=== PATIENT | female | born 1995 | race Caucasian/White ===

== ENCOUNTER 2016-07-29 09:38 | Emergency (ER) | payer MEDICAID, OTHER ==
[2016-07-29 10:11] LABS: #Basophils 0.1 thou/uL (0.0-0.2); #Eosinphils 0.3 thou/uL (0.0-0.7); #Lymphocytes 2.5 thou/uL (1.20-3.40); #Monocytes 0.5 thou/uL (0.11-0.59); #Neutrophils 4.3 thou/uL (1.40-6.50); %Eosinophils 3.7 % (0.0-10.0); %Monocytes 6.8 % (0.0-10.0); Hematocrit 41.6 % (36.0-47.0); Mean Platelet Volume 6.9 fL (7.4-10.4); Red Blood Cell (RBC) Count 4.65 mill/uL (4.20-5.40); White Blood Cell (WBC) Count 7.7 thou/uL (4.8-10.8)
[2016-07-29 10:18] LABS: Base Excess -0.3 mEq/L (-2 - +2)
[2016-07-29 10:26] LABS: ALT (SGPT) 14 U/L (0-55); AST (SGOT) 12 U/L (5-34); Alkaline Phosphatase 69 U/L (40-150); Anion Gap 14 mmol/L (10-20); BUN (Urea Nitrogen) 15 mg/dL (7.0-18.7); Bilirubin, Total 0.2 mg/dL (0.2-1.2); Calc. Creatinine Clearance 0 mL/min (70-130); Calcium 9.2 mg/dL (7.8-10.44); Carbon Dioxide 21 mmol/L (22-29); Chloride 103 mmol/L (98-107); Estimated GFR-MDRD 81; Globulin 3.5 g/dL (2.4-3.5); Protein, Total 7.7 g/dL (6.0-8.3)
--- NOTE | 2016-07-29 10:42 | ERRECORD ---
[facility] EMERGENCY RECORD HPI DIABETES (09:50 [facility]) CHIEF COMPLAINT: Patient presents for evaluation of hyperglycemia, Pre-hospital or triage blood sugar greater than 400. HISTORIAN: History provided by patient, 21F with a history of IDDM presents with complaints of elevated blood sugar. States that last night in the middle of the night it was low, so she ate lots of food, and this morning it was 411. She took a bolus of 10 units of insulin by pump and came to the ED. Reports feeling sluggish. LOCATION: Symptoms are generalized. EXACERBATED BY: Patient's condition not exacerbated by poor oral intake. RELIEVED BY: Patient's condition relieved by insulin. ROS (09:52 [facility]) CONSTITUTIONAL: Negative constitutional review of systems, Historian denies chills, denies fever, reports malaise. EYES: Negative eye review of systems, Historian denies eye pain, denies vision changes. ENT: Negative ears, nose, throat review of systems, Historian denies rhinorrhea, denies sore throat, denies voice changes. CARDIOVASCULAR: Negative cardiovascular review of systems, Historian denies chest pain, denies palpitations. RESPIRATORY: Negative respiratory review of systems, Historian denies cough, denies shortness of breath. GI: Negative gastrointestinal review of systems, Historian denies abdominal pain, denies constipation, denies diarrhea, denies nausea, denies vomiting. GENITOURINARY FEMALE: Negative genitourinary review of systems, Historian denies dysuria, denies frequency. MUSCULOSKELETAL: Negative musculoskeletal review of systems, Historian denies back pain, denies fall, denies injury. SKIN: Negative skin review of systems, Historian denies rash, denies skin changes. NEUROLOGIC: Negative neurologic review of systems, Historian denies headache, denies mental status changes, denies paralysis, denies paresthesias, denies sensory changes. ENDOCRINE: hyperglycemia. HEMO/LYMPHATIC: Normal hematologic/lymphatic system review, Historian denies abnormal blood clotting. ALLERGIC/IMMUNOLOGIC: Normal allergy/immunologic system review, Historian denies frequent infections. PAST MEDICAL HISTORY (09:45 [facility]) MEDICAL HISTORY: Notes: pt has an insulin pump Rt flank, Past medical history includes history of diabetes, Type I, on insulin, Notes: BOARDERLINE PERSONALITY DISORDER, Past medical history includes history of diabetes, Type I. FEMALE SURGICAL HISTORY: Patient's surgical history is not relevant to the management of the case, TUBES IN EARS. PSYCHIATRIC HISTORY: Psychiatric history includes, &a-1R&a+25V*p+0X*p1305L*c202B*c15G*c2P*p-0X&a-25V&a+1R Name: Glenna Silva : 1995 F21 MedRec: [id number] AcctNum: [id number] Prepared: Sat Jul 29, 2016 10:43 by Interface Page 1 of 4 pMD [facility] EMERGENCY RECORD anxiety, depression. SOCIAL HISTORY: Patient drinks socially, once a month, Patient denies drug use, Patient has no smoking history. KNOWN ALLERGIES Bactrim: Source: Parent, - Entered brand: Bactrim Tab -- Entered brand: Bactrim Tab Ceclor: Reaction: Anaphylaxis, Severity: Severe, Source: Patient, - "stop breathing" CeleXA Phenergan: Source: Patient, - Entered brand: Phenergan Tab -- Entered brand: Phenergan Tab -- Entered brand: Phenergan Tab -- Entered brand: Phenergan Tab -- Entered brand: Phenergan Tab -- Entered brand: Phenergan Tab -- sezuires Reglan: Source: Patient, - Entered brand: Reglan Tab -- Entered brand: Reglan Tab -- Entered brand: Reglan Tab -- Entered brand: Reglan Tab -- Entered brand: Reglan Tab -- Entered brand: Reglan Tab -- sezuires CURRENT MEDICATIONS (10:37 [facility]) Unable to obtain VITAL SIGNS VITAL SIGNS: BP: 131/83, Pulse: 106, Resp: 18, Temp: 98.1 (Oral), Pain: 5, O2 sat: 98 on Room Air, Time: 07/29/2016 09:42. (09:42 [facility]) BP: 128/77, Pulse: 94, Resp: 18, O2 sat: 99 on Room Air, Time: 07/29/2016 10:37. (10:37 [facility]) PHYSICAL EXAM (09:52 [facility]) CONSTITUTIONAL: Vital signs reviewed, Patient afebrile, Pulse normal, Blood pressure normal, Respiratory rate normal, Patient appears non toxic, Patient appears pain free, Patient alert and oriented to person, place and time. HEAD: Head exam normal, Head exam included findings of head atraumatic, normocephalic. EYES: Eye exam normal, Eye exam included findings of eyelids normal to inspection, Pupils equally round and reactive to light, Extraocular muscles intact, no nystagmus. ENT: ENT exam normal, Ear exam normal, external ear normal, tympanic membranes normal, no bleeding, Pharynx exam normal, Uvula exam normal, Tonsil exam normal, Mouth exam normal, mucous membranes moist, teeth normal. NECK: Neck exam normal, Neck exam included findings of normal range of motion, Trachea midline, no meningeal signs, no cervical adenopathy, no tenderness. RESPIRATORY CHEST: Respiratory and chest exam normal, Respiratory exam included findings of no respiratory distress, Breath sounds clear. CARDIOVASCULAR: Cardiovascular assessment normal, Cardiovascular exam included findings of heart rate regular rate and rhythm, Heart &a-1R&a+25V*p+0X*f8688R*c202B*c15G*c2P*p-0X&a-25V&a+1R Name: Glenna Silva : 1995 F21 MedRec: [id number] AcctNum: [id number] Prepared: Sat Jul 29, 2016 10:43 by Interface Page 2 of 4 pMD [facility] EMERGENCY RECORD sounds normal. ABDOMEN FEMALE: Abdominal exam included findings of abdomen nontender, Bowel sounds normal, no distension, no mass, no pulsatile masses, no peritoneal signs, no rigidity, no guarding, no rebound, Rovsing's sign absent. BACK: Back exam normal, Back exam included findings of normal inspection, range of motion normal, no tenderness. UPPER EXTREMITY: Upper extremity exam normal, Upper extremity exam included findings of inspection normal, Range of motion normal, Motor strength normal, Sensation intact, Radial pulse normal. LOWER EXTREMITY: Lower extremity exam normal, Lower extremity exam included findings of inspection normal, Range of motion normal, Motor strength normal, Sensation intact, Posterior tibial pulse normal, Pedal pulse normal. NEURO: Neuro exam normal, Neuro exam findings include patient oriented to person, place and time, Speech normal, Gait normal, Cranial nerves intact, no focal motor deficits, no focal sensory deficits. SKIN: Skin exam normal, Skin exam included findings of skin warm, dry, and normal in color, no rash. PSYCHIATRIC: Psychiatric exam normal, Normal affect. MEDICATION ADMINISTRATION SUMMARY Drug Name: *sodium chloride 0.9 % intravenous, Dose Ordered: 500 mL, Route: IV Fluid Infusion, Status: Given, Time: 09:59 07/29/2016, *Additional information available in notes, Detailed record available in Medication Service section. DOCTOR NOTES (10:33 [facility]) TEXT: Patient presented with hyperglycemia and concern for DKA, which was not supported by her lab work. While she was close, she was not acidotic with a regular anion gap. She has a good understanding of her condition and management of it, and I feel comfortable discharging her home with the provision that she returns if she feels worse or cannot control her glucose levels at home. PATIENT STATUS: Patient has improved since arrival to emergency department. PATIENT PLAN: The patient will be discharged. DATA REVIEWED: Lab data reviewed. PROBLEM LIST No recorded problems DIAGNOSIS (10:33 [facility]) FINAL: PRIMARY: TYPE 1 DM W/HYPERGLYCEMIA. PRESCRIPTION No recorded prescriptions &a-1R&a+25V*p+0X*[id number]*c202B*c15G*c2P*p-0X&a-25V&a+1R Name: Glenna Silva : 1995 F21 MedRec: [id number] AcctNum: [id number] Prepared: Sat Jul 29, 2016 10:43 by Interface Page 3 of 4 pMD [facility] EMERGENCY RECORD DISPOSITION PATIENT: Disposition Type: Discharge, Disposition: *Discharge Home. (10:33 [facility]) Patient left the department. (10:40 [facility]) Larsen: THERESE=MD Lucinda, Perico [facility]=DARRION Wynne, Twyla &a-1R&a+25V*p+0X*[id number]*c202B*c15G*c2P*p-0X&a-25V&a+1R Name: Glenna Silva Danny : 1995 F21 MedRec: [id number] AcctNum: [id number] Prepared: Sat Jul 29, 2016 10:43 by Interface Page 4 of 4 pMD [facility]TDD
--- NOTE | 2016-07-29 10:51 | PICIS ---
[facility] EMERGENCY RECORD TRIAGE (09:41 KMOR) TRIAGE NOTES: High blood sugar, took 10 units insulin at 0700, sugar 411. Vomited x2 this am. (09:41 KMOR) PATIENT: NAME: Glenna Silva, AGE: 21, GENDER: female, : Sun1995, TIME OF GREET: Sat Jul 29, 2016 09:39, PREFERRED LANGUAGE: Welsh, ETHNICITY: Not or , FALL RISK: NO, ECODE BILLING MAP: [facility], SSN: [id number], KG WEIGHT: 70.76, PHONE: , , , PERSON ID: [id number], PCP: MD Garcia Nanette. (09:41 KMOR) Zip Code: [address]. (10:02) COMPLAINT: High blood sugar. (09:41 KMOR) ADMISSION: URGENCY: 3 Urgent, ADMISSION SOURCE: Home, TRANSPORT: CAR, BED: ER -02. (09:41 KMOR) ASSESSMENT: Assessment: A&OX4. RR EVEN AND UNLABORED., Symptoms began 2 hours ago. (09:45 KMOR) SIRS SCORING: Heart Rate 55-109 (0), Temp range 96.8-101.1 (0), respiratory rate 12-24 (0), Mental Status altered: no (0), Infection or Suspected Infection: No. (09:45 KMOR) TRIAGE SCREENING: Patient denies suicidal ideation, Patient denies presence of domestic violence. (09:45 KMOR) LMP: Last menstrual period: 06/26/2016. (09:45 KMOR) PROVIDERS: TRIAGE NURSE: Twyla Wynne RN. (09:41 KMOR) VITAL SIGNS: BP 131/83, Pulse 106, Resp 18, Temp 98.1, (Oral), Pain 5, O2 Sat 98, on Room Air, Time 07/29/2016 09:42. (09:42 KMOR) PREVIOUS VISIT ALLERGIES: Bactrim, Ceclor, Phenergan, promethazine HCl, Reglan, sulfamethoxazole, trimethoprim. (09:41 KMOR) Bactrim, Ceclor, Phenergan, promethazine HCl, Reglan, sulfamethoxazole, trimethoprim. (09:45 KMOR) KNOWN ALLERGIES Bactrim: Source: Parent, - Entered brand: Bactrim Tab -- Entered brand: Bactrim Tab Ceclor: Reaction: Anaphylaxis, Severity: Severe, Source: Patient, - "stop breathing" CeleXA Phenergan: Source: Patient, - Entered brand: Phenergan Tab -- Entered brand: Phenergan Tab -- Entered brand: Phenergan Tab -- Entered brand: Phenergan Tab -- Entered brand: Phenergan Tab -- Entered brand: Phenergan Tab -- sezuires Reglan: Source: Patient, - Entered brand: Reglan Tab -- Entered brand: Reglan Tab -- Entered brand: Reglan Tab -- Entered brand: Reglan Tab -- Entered brand: Reglan Tab -- Entered brand: Reglan Tab -- sezuires CURRENT MEDICATIONS (10:37 KMOR) Unable to obtain VITAL SIGNS &a-1R&a+25V*p+0X*k3673Q*c202B*c15G*c2P*p-0X&a-25V&a+1R Name: lGenna Silva : 1995 F21 MedRec: [id number] AcctNum: [id number] Prepared: Sat Jul 29, 2016 10:49 by Interface Page 1 of 7 pMD [facility] EMERGENCY RECORD VITAL SIGNS: BP: 131/83, Pulse: 106, Resp: 18, Temp: 98.1 (Oral), Pain: 5, O2 sat: 98 on Room Air, Time: 07/29/2016 09:42. (09:42 KMOR) BP: 128/77, Pulse: 94, Resp: 18, O2 sat: 99 on Room Air, Time: 07/29/2016 10:37. (10:37 KMOR) NURSING ASSESSMENT: ABDOMEN (09:53 KMOR) CONSTITUTIONAL: Patient arrives ambulatory, Gait steady, History obtained from patient, Patient appears comfortable, Patient cooperative, Patient alert, Oriented to person, place and time, Skin warm, Skin dry, Skin normal in color, Mucous membranes pink, Mucous membranes moist, Patient is well-groomed, Patient complains of High blood sugar, Patient reports she felt like her sugar was low in the middle of the night so she ate a lot, reports woke vomiting x 2 and "high" blood sugar, reports took 10units of insulin this am, reports still have stomach cramps. PAIN: cramping pain, diffusely, on a scale 0-10 patient rates pain as 5. ABDOMEN: Abdomen assessment findings include abdomen symmetrical, Abdomen soft, non-tender, Bowel sound normal, Associated with nausea, Associated with vomiting, history of vomiting, Number of times: 2, no associated diarrhea, no associated constipation, no associated appetite change. LMP: First day last menstrual period, Last period started on 06/26/2016. GENITOURINARY FEMALE: no associated urinary complaints. NOTES: Patient tolerated procedure well. NURSING PROCEDURE: BEDSIDE TESTING (09:46 LGIB) GLUCOSE: Capillary blood sample, Result (mg/dl) 294. NURSING PROCEDURE: DISCHARGE NOTE (10:40 KMOR) DISCHARGE: Patient discharged to home, ambulating without assistance, family driving, accompanied by //partner, Summary of Care printed/ provided, Transition record given to patient, Discharge instructions given to patient, Simple or moderate discharge teaching performed, by DARRION Wakefield, Discharge instructions and follow up reviewed with patient. Pt ambulatory to discharge desk., Above person(s) verbalized understanding of discharge instructions and follow-up care. BELONGINGS: Belongings remain with patient, Valuables remain with patient. NURSING PROCEDURE: IV PATIENT IDENITIFIER: Patient actively involved in identification process, Patient's identity verified by patient stating name, Patient's identity verified by patient stating date. (10:35 KMOR) IV SITE 1: IV therapy indicated for hydration, IV established, to the left antecubital, using a 20 gauge catheter, in one attempt, Saline lock established, Flushed with normal saline (mls): 10, Labs &a-1R&a+25V*p+0X*f9154U*c202B*c15G*c2P*p-0X&a-25V&a+1R Name: Glenna Silva Danny : 1995 F21 MedRec: [id number] AcctNum: [id number] Prepared: Sat Jul 29, 2016 10:49 by Interface Page 2 of 7 pMD [facility] EMERGENCY RECORD drawn at time of placement, labeled in the presence of the patient and sent to lab. (09:58 LGIB) FOLLOW-UP SITE 1: After procedure, 2x3 ensure dressing applied, After procedure, no drainage at IV site, After procedure, no swelling at IV site, After procedure, no redness at IV site, IV discontinued, due to patient being discharged, catheter intact. (10:35 KMOR) NOTES: Patient tolerated procedure well. (10:35 KMOR) ORDER DETAILS Order Name: CBC with Differential, Status: Active, Time: 09:48 07/29/2016, User: THERESE, - Ordered for: MD Jane Jason, - Entered by: MD Jane Jason - Sat Jul 29, 2016 09:48, - Quantity: 1, Order Name: Comprehensive Metabolic Panel, Status: Active, Time: 09:48 07/29/2016, User: THERESE, - Ordered for: MD Jane Jason, - Entered by: MD Jane Jason - Sat Jul 29, 2016 09:48, - Quantity: 1, Order Name: SALINE LOCK, Status: Done, Time: 10:02 07/29/2016, User: LOGAN, - Ordered for: MD Jane Jason, - Entered by: MD Jane Jason - [facility] Jul 29, 2016 09:48, - Quantity: 1, Order Name: VBG (For BUR,MAD, and MONSERRAT), Status: Active, Time: 09:48 07/29/2016, User: THERESE, - Ordered for: MD Jane Jason, - Entered by: MD aJne Jason - Sat Jul 29, 2016 09:48, - Quantity: 1. MEDICATION ADMINISTRATION SUMMARY Drug Name: *sodium chloride 0.9 % intravenous, Dose Ordered: 500 mL, Route: IV Fluid Infusion, Status: Given, Time: 09:59 07/29/2016, *Additional information available in notes, Detailed record available in Medication Service section. MEDICATION SERVICE sodium chloride 0.9 % intravenous: Order: sodium chloride 0.9 % intravenous (0.9 % sodium chloride) - Dose: 500 mL : IV Fluid Infusion Notes: (Bolus) Ordered by: Perico Jane MD Entered by: Perico Jane MD Sat Jul 29, 2016 09:49 , Acknowledged by: Carli Shah RN Sat Jul 29, 2016 09:51 Documented as given by: Carli Shah RN Sat Jul 29, 2016 09:59 Patient, Medication, Dose, Route and Time verified prior to administration. IV SITE #1 IV fluids established for hydration, IV SITE #1 into left &a-1R&a+25V*p+0X*i8196M*c202B*c15G*c2P*p-0X&a-25V&a+1R Name: Glenna Silva : 1995 F21 MedRec: [id number] AcctNum: [id number] Prepared: Sat Jul 29, 2016 10:49 by Interface Page 3 of 7 pMD [facility] EMERGENCY RECORD antecubital, IV SITE #1 1st bag hung, amount 500ml hung, IV SITE #1 bolus of 500 ml established, IV SITE #1 Rate of infusion (non-bolus) Infusing at 1000 ml/hr, via primary tubing, IV SITE #1 on IV pump, Catheter placement confirmed via flush prior to administration, IV site without signs or symptoms of infiltration during medication administration, No swelling during administration, No drainage during administration, IV flushed after administration, Correct patient, time, route, dose and medication confirmed prior to administration, Patient advised of actions and side-effects prior to administration, Allergies confirmed and medications reviewed prior to administration, Patient in position of comfort, Side rails up, Cart in lowest position, Family at bedside. : Follow Up : Response assessment performed, No signs or symptoms of allergic reaction noted, _IV SITE #1:_, IV fluid infusion discontinued, on Sat Jul 29, 2016 10:33, 35 minutes, ., Total amount infused: 500ml, IV Discontinued with catheter intact. (10:33 KMOR) HPI DIABETES (09:50 [facility]) CHIEF COMPLAINT: Patient presents for evaluation of hyperglycemia, Pre-hospital or triage blood sugar greater than 400. HISTORIAN: History provided by patient, 21F with a history of IDDM presents with complaints of elevated blood sugar. States that last night in the middle of the night it was low, so she ate lots of food, and this morning it was 411. She took a bolus of 10 units of insulin by pump and came to the ED. Reports feeling sluggish. LOCATION: Symptoms are generalized. EXACERBATED BY: Patient's condition not exacerbated by poor oral intake. RELIEVED BY: Patient's condition relieved by insulin. ROS (09:52 [facility]) CONSTITUTIONAL: Negative constitutional review of systems, Historian denies chills, denies fever, reports malaise. EYES: Negative eye review of systems, Historian denies eye pain, denies vision changes. ENT: Negative ears, nose, throat review of systems, Historian denies rhinorrhea, denies sore throat, denies voice changes. CARDIOVASCULAR: Negative cardiovascular review of systems, Historian denies chest pain, denies palpitations. RESPIRATORY: Negative respiratory review of systems, Historian denies cough, denies shortness of breath. GI: Negative gastrointestinal review of systems, Historian denies abdominal pain, denies constipation, denies diarrhea, denies nausea, denies vomiting. GENITOURINARY FEMALE: Negative genitourinary review of systems, Historian denies dysuria, denies frequency. MUSCULOSKELETAL: Negative musculoskeletal review of systems, Historian denies back pain, denies fall, denies injury. SKIN: Negative skin review of systems, Historian denies rash, &a-1R&a+25V*p+0X*x2042X*c202B*c15G*c2P*p-0X&a-25V&a+1R Name: Glenna Silva : 1995 F21 MedRec: [id number] AcctNum: [id number] Prepared: Sat Jul 29, 2016 10:49 by Interface Page 4 of 7 pMD [facility] EMERGENCY RECORD denies skin changes. NEUROLOGIC: Negative neurologic review of systems, Historian denies headache, denies mental status changes, denies paralysis, denies paresthesias, denies sensory changes. ENDOCRINE: hyperglycemia. HEMO/LYMPHATIC: Normal hematologic/lymphatic system review, Historian denies abnormal blood clotting. ALLERGIC/IMMUNOLOGIC: Normal allergy/immunologic system review, Historian denies frequent infections. PAST MEDICAL HISTORY (09:45 KMOR) MEDICAL HISTORY: Notes: pt has an insulin pump Rt flank, Past medical history includes history of diabetes, Type I, on insulin, Notes: BOARDERLINE PERSONALITY DISORDER, Past medical history includes history of diabetes, Type I. FEMALE SURGICAL HISTORY: Patient's surgical history is not relevant to the management of the case, TUBES IN EARS. PSYCHIATRIC HISTORY: Psychiatric history includes, anxiety, depression. SOCIAL HISTORY: Patient drinks socially, once a month, Patient denies drug use, Patient has no smoking history. PHYSICAL EXAM (09:52 [facility]) CONSTITUTIONAL: Vital signs reviewed, Patient afebrile, Pulse normal, Blood pressure normal, Respiratory rate normal, Patient appears non toxic, Patient appears pain free, Patient alert and oriented to person, place and time. HEAD: Head exam normal, Head exam included findings of head atraumatic, normocephalic. EYES: Eye exam normal, Eye exam included findings of eyelids normal to inspection, Pupils equally round and reactive to light, Extraocular muscles intact, no nystagmus. ENT: ENT exam normal, Ear exam normal, external ear normal, tympanic membranes normal, no bleeding, Pharynx exam normal, Uvula exam normal, Tonsil exam normal, Mouth exam normal, mucous membranes moist, teeth normal. NECK: Neck exam normal, Neck exam included findings of normal range of motion, Trachea midline, no meningeal signs, no cervical adenopathy, no tenderness. RESPIRATORY CHEST: Respiratory and chest exam normal, Respiratory exam included findings of no respiratory distress, Breath sounds clear. CARDIOVASCULAR: Cardiovascular assessment normal, Cardiovascular exam included findings of heart rate regular rate and rhythm, Heart sounds normal. ABDOMEN FEMALE: Abdominal exam included findings of abdomen nontender, Bowel sounds normal, no distension, no mass, no pulsatile masses, no peritoneal signs, no rigidity, no guarding, no rebound, Rovsing's sign absent. BACK: Back exam normal, Back exam included findings of normal &a-1R&a+25V*p+0X*r7316O*c202B*c15G*c2P*p-0X&a-25V&a+1R Name: Glenna Silva : 1995 F21 MedRec: [id number] AcctNum: [id number] Prepared: Sat Jul 29, 2016 10:49 by Interface Page 5 of 7 pMD [facility] EMERGENCY RECORD inspection, range of motion normal, no tenderness. UPPER EXTREMITY: Upper extremity exam normal, Upper extremity exam included findings of inspection normal, Range of motion normal, Motor strength normal, Sensation intact, Radial pulse normal. LOWER EXTREMITY: Lower extremity exam normal, Lower extremity exam included findings of inspection normal, Range of motion normal, Motor strength normal, Sensation intact, Posterior tibial pulse normal, Pedal pulse normal. NEURO: Neuro exam normal, Neuro exam findings include patient oriented to person, place and time, Speech normal, Gait normal, Cranial nerves intact, no focal motor deficits, no focal sensory deficits. SKIN: Skin exam normal, Skin exam included findings of skin warm, dry, and normal in color, no rash. PSYCHIATRIC: Psychiatric exam normal, Normal affect. EVENTS TRANSFER: Triage to Emergency Emergency Room -02. (Sat Jul 29, 2016 09:41 KMOR) Removed from Emergency Emergency Room -02. (10:40 KMOR) DOCTOR NOTES (10:33 JJA) TEXT: Patient presented with hyperglycemia and concern for DKA, which was not supported by her lab work. While she was close, she was not acidotic with a regular anion gap. She has a good understanding of her condition and management of it, and I feel comfortable discharging her home with the provision that she returns if she feels worse or cannot control her glucose levels at home. PATIENT STATUS: Patient has improved since arrival to emergency department. PATIENT PLAN: The patient will be discharged. DATA REVIEWED: Lab data reviewed. PROBLEM LIST No recorded problems DIAGNOSIS (10:33 JJA) FINAL: PRIMARY: TYPE 1 DM W/HYPERGLYCEMIA. DISPOSITION PATIENT: Disposition Type: Discharge, Disposition: *Discharge Home. (10:33 JJA) Patient left the department. (10:40 KMOR) [facility] DISCHARGE: DIABETIC HYPERGLYCEMIA. FOLLOWUP: MD Jose, Desirae, [facility], [address] [place] [address], [address], [place] [id number], [place], . SPECIAL: Monitor your blood sugar closely. Return if you begin feeling worse. &a-1R&a+25V*p+0X*t2478T*c202B*c15G*c2P*p-0X&a-25V&a+1R Name: Glenna Silva Danny : 1995 F21 MedRec: [id number] AcctNum: [id number] Prepared: Sat Jul 29, 2016 10:49 by Interface Page 6 of 7 pMD [facility] EMERGENCY RECORD PRESCRIPTION No recorded prescriptions IMAGING (10:44 KMOR) *DISCHARGE INSTRUCTIONS RECEIPT: Image captured from scanner. *SUPPLY CHARGE SHEET: Image captured from scanner. ADMIN DIGITAL SIGNATURE: MD Jane Jason. (10:35 THERESE) DARRION Wynne Krista. (10:45 LOGAN) Larsen: THERESE=MD Jane Jason [place]=DARRION Wynne Krista LGIB=DARRION Shah, Carli &a-1R&a+25V*p+0X*[id number]*c202B*c15G*c2P*p-0X&a-25V&a+1R Name: Shira Glenna Danny : 1995 F21 MedRec: [id number] AcctNum: [id number] Prepared: Homer Jul 29, 2016 10:49 by Interface Page 7 of 7 pMD MTDD
== END 2016-07-29 10:40 | disposition home or self-care (01) ==
LOC: BURERS 09:38
DX: E10.65 Type 1 diabetes mellitus with hyperglycemia (principal); F32.9 Major depressive disorder, single episode, unspecified; F41.9 Anxiety disorder, unspecified
CPT/HCPCS: 36416; 80053; 82805; 85025; 96360

== ENCOUNTER 2016-08-15 19:50 | Emergency (ER) | payer MEDICAID ==
[2016-08-15 20:25] LABS: #Basophils 0.1 thou/uL (0.0-0.2); #Eosinphils 0.3 thou/uL (0.0-0.7); #Lymphocytes 2.9 thou/uL (1.20-3.40); #Monocytes 0.5 thou/uL (0.11-0.59); #Neutrophils 4.7 thou/uL (1.40-6.50); %Basophils 1.2 % (0.0-1.0); %Monocytes 6.2 % (0.0-10.0); Hematocrit 40.7 % (36.0-47.0); Mean Platelet Volume 7.4 fL (7.4-10.4); Red Blood Cell (RBC) Count 4.47 mill/uL (4.20-5.40); White Blood Cell (WBC) Count 8.5 thou/uL (4.8-10.8)
[2016-08-15 20:36] LABS: ALT (SGPT) 8 U/L (0-55); AST (SGOT) 10 U/L (5-34); Alkaline Phosphatase 71 U/L (40-150); Anion Gap 18 mmol/L (10-20); BUN (Urea Nitrogen) 19 mg/dL (7.0-18.7); Bilirubin, Total 0.3 mg/dL (0.2-1.2); Calc. Creatinine Clearance 0 mL/min (70-130); Calcium 9.2 mg/dL (7.8-10.44); Carbon Dioxide 18 mmol/L (22-29); Chloride 96 mmol/L (98-107); Estimated GFR-MDRD 66; Globulin 3.2 g/dL (2.4-3.5); Magnesium 1.9 mg/dL (1.6-2.6); Protein, Total 7.3 g/dL (6.0-8.3)
[2016-08-15 20:48] LABS: Bilirubin Negative (Negative); Blood, Urine Negative (Negative); Glucose, Urine (Dipstick) >=1000 mg/dL (Negative); Ketone, Urine 15 mg/dL (Negative); Nitrite Negative (Negative); Protein, Urine (Dipstick) Negative (Neg-Trace); Urobilinogen 0.2 mg/dL (0.2-1.0)
[2016-08-15 20:57] LABS: Bacteria/HPF 2+ HPF (None Seen); RBC/HPF 0-3 HPF (0-3); Squamous Epithelial 0-3 HPF (0-3)
[2016-08-15] MEDS ORDERED: Meclizine HCl 25 MG TAB ONE (20:57)
[2016-08-15] MEDS ORDERED: Ciprofloxacin Lactate/D5W 400 mg/200 ml Premix ONE (21:08)
[2016-08-15] MEDS ORDERED: Insulin Regular 300 UNITS/3 ML VIAL ONE (21:08)
--- NOTE | 2016-08-15 23:21 | ERRECORD ---
[facility] EMERGENCY RECORD HPI DIABETES (22:18 JPIP) CHIEF COMPLAINT: Denies hypoglycemia, Patient presents for evaluation of hyperglycemia, Pre-hospital or triage blood sugar greater than 400, Patient presents for evaluation of home monitor read "HI". HISTORIAN: History provided by patient. LOCATION: No localizing symptoms. SEVERITY: Current severity of pain rated as 2/10. TIME COURSE: Sudden onset of symptoms, Date and time of onset was 2-3 days, There has been no change in the patient's symptoms over time, are constant. ASSOCIATED WITH: No associated dizziness, No associated fever, No associated illness, No associated injury, No associated loss of consciousness, No associated upper respiratory infection, No associated vomiting. EXACERBATED BY: Patient's condition exacerbated by nothing. RELIEVED BY: Patient's condition relieved by nothing. ROS (22:19 JPIP) CONSTITUTIONAL: Historian denies chills, denies fever. ENT: Historian denies dysphagia, denies otalgia, denies sinus pain, denies sore throat. CARDIOVASCULAR: Historian denies chest pain, denies dyspnea on exertion. RESPIRATORY: Historian denies cough, denies shortness of breath. GI: Historian reports nausea. GENITOURINARY FEMALE: Historian denies dysuria, denies frequency, denies hematuria, denies , denies urgency. MUSCULOSKELETAL: Historian reports myalgias. SKIN: Historian denies rash, denies skin changes, denies skin lesions. NEUROLOGIC: Historian denies confusion, denies dizziness, denies headache. ENDOCRINE: Historian reports polyuria. NOTES: All systems reviewed, negative except as described above. PAST MEDICAL HISTORY MEDICAL HISTORY: Past medical history includes history of diabetes, Type I, on insulin, Notes: BOARDERLINE PERSONALITY DISORDER,. (19:58 SDIS) FEMALE SURGICAL HISTORY: TUBES IN EARS. (19:58 SDIS) PSYCHIATRIC HISTORY: Psychiatric history includes, anxiety, depression. (19:58 SDIS) SOCIAL HISTORY: Patient drinks socially, once a month, Patient denies drug use, Patient has no smoking history. (19:58 SDIS) NOTES: Nursing records reviewed, Medication list reviewed. (22:21 JPIP) KNOWN ALLERGIES Bactrim: Source: Parent, - Entered brand: Bactrim Tab -- Entered &a-1R&a+25V*p+0X*v9524C*c202B*c15G*c2P*p-0X&a-25V&a+1R Name: Glenna Silva : 1995 F21 MedRec: [id number] AcctNum: [id number] Prepared: SunAug 15, 2016 23:16 by Interface Page 1 of 4 pMD [facility] EMERGENCY RECORD brand: Bactrim Tab Ceclor: Reaction: Anaphylaxis, Severity: Severe, Source: Patient, - "stop breathing" CeleXA Phenergan: Source: Patient, - Entered brand: Phenergan Tab -- Entered brand: Phenergan Tab -- Entered brand: Phenergan Tab -- Entered brand: Phenergan Tab -- Entered brand: Phenergan Tab -- Entered brand: Phenergan Tab -- sezuires Reglan: Source: Patient, - Entered brand: Reglan Tab -- Entered brand: Reglan Tab -- Entered brand: Reglan Tab -- Entered brand: Reglan Tab -- Entered brand: Reglan Tab -- Entered brand: Reglan Tab -- sezuires Zofran (PF) CURRENT MEDICATIONS NovoLIN 70/30: VIAL (ML) : Strength - 100 unit/mL (70-30) : SUBCUTANEOUS Patient Dose: 22 units Subcutaneous 2 times a day. (19:55 SDIS) NovoLOG: VIAL (ML) : Strength - 100 unit/mL : SUBCUTANEOUS Patient Dose: * units Subcutaneous 3 times a day.SLIDING SCALE. (19:55 SDIS) OLANZapine: TABLET : Strength - 5 mg : ORAL Patient Dose: 5 mg Oral once a day. (19:56 SDIS) PROzac: CAPSULE : Strength - 40 mg : ORAL Patient Dose: 40 mg Oral once a day. (19:56 SDIS) VITAL SIGNS VITAL SIGNS: BP: 119/86, Pulse: 91, Resp: 18 (Non-Labored), Temp: 98.2 (Oral), Pain: 2, O2 sat: 98 on Room Air, Time: 08/15/2016 19:51. (19:51 SDIS) BP: 121/73, Pulse: 81, Resp: 20, O2 sat: 99 on Room Air, Time: 08/15/2016 22:15. (22:15 SDIS) (22:24 SDIS) BP: 127/75, Pulse: 83, Resp: 18, O2 sat: 95 on Room Air, Time: 08/15/2016 21:15. (21:15 SDIS) BP: 129/65, Pulse: 89, Resp: 18, Temp: 98.1 (Oral), Pain: 0, O2 sat: 98 on Room Air, Time: 08/15/2016 23:05. (23:05 SDIS) PHYSICAL EXAM (22:20 JPIP) CONSTITUTIONAL: Vital Signs Reviewed, Patient afebrile, Pulse normal, Blood pressure normal bilaterally, Respiratory rate normal, Patient appears, uncomfortable, Patient alert and oriented to person, place and time, Nursing notes reviewed. HEAD: Head exam included findings of head atraumatic, normocephalic. EYES: Eye exam included findings of eyelids normal to inspection, &a-1R&a+25V*p+0X*t0919B*c202B*c15G*c2P*p-0X&a-25V&a+1R Name: Glenna Silva : 1995 F21 MedRec: [id number] AcctNum: [id number] Prepared: SunAug 15, 2016 23:16 by Interface Page 2 of 4 pMD [facility] EMERGENCY RECORD Conjunctiva normal, Sclera normal, no periorbital ecchymosis, no periorbital edema, no periorbital erythema. ENT: Pharynx exam normal, not injected, no swelling, symmetrical, Uvula exam normal, midline, no edema, Mouth exam included findings of, mucous membranes tacky. NECK: Neck exam included findings of normal range of motion, Trachea midline, no cervical adenopathy, no tenderness. RESPIRATORY CHEST: Respiratory exam included findings of no respiratory distress, Breath sounds clear, No wheezing, No rales, No rhonchi, Breath sounds not absent, Breath sounds not diminished. CARDIOVASCULAR: Cardiovascular exam included findings of heart rate regular rate and rhythm, Heart sounds normal, no murmurs, no rub. ABDOMEN FEMALE: Abdominal exam included findings of abdomen nontender, Bowel sounds, hypoactive, Liver normal, Spleen normal, no distension, no mass, no pulsatile masses, no peritoneal signs, no rigidity, no guarding, no rebound. BACK: no costovertebral angle tenderness. UPPER EXTREMITY: Upper extremity exam included findings of inspection normal, Range of motion normal. LOWER EXTREMITY: Lower extremity exam included findings of inspection normal, Range of motion normal. NEURO: Laly coma scale 15, Neuro exam findings include patient oriented to person, place and time, Speech normal, no focal motor deficits. SKIN: Skin exam included findings of skin warm, dry, and normal in color, excoriated acne on chest and shoulders. LYMPHATIC: Lymphatic exam included findings of cervical nodes normal, Submandibular normal. PSYCHIATRIC: Psychiatric exam included findings of patient oriented to person place and time, Normal affect. EKG INTERPRETATION (21:46 JPIP) MONITOR STRIP: administrative support clerk strip interpreted by Emergency Department Physician, Monitor strip shows normal sinus rhythm, with no ectopics. 12 LEAD EKG INTERPRETATION: 12 lead EKG interpreted by Emergency Department Physician at time of study, 12 lead EKG shows normal sinus rhythm, Rate (beats per minute): 81, with no ectopics, Interpretation: normal EKG, Conduction normal, ST segments normal, T waves normal, [place] normal, Clinical impression: Normal EKG. MEDICATION ADMINISTRATION SUMMARY Drug Name: Normal Saline, Dose Ordered: 1000 mL/hr, Route: IV Fluid Infusion, Status: Ordered, Time: 21:37 08/15/2016, Drug Name: Normal Saline, Dose Ordered: 1000 mL/hr, Route: IV Fluid Infusion, Status: Given, Time: 21:35 08/15/2016, Drug Name: HumuLIN R, Dose Ordered: 10 units, Route: IV Push, Status: Given, Time: 21:14 08/15/2016, &a-1R&a+25V*p+0X*e0661C*c202B*c15G*c2P*p-0X&a-25V&a+1R Name: Glenna Silva : 1995 F21 MedRec: [id number] AcctNum: [id number] Prepared: SunAug 15, 2016 23:16 by Interface Page 3 of 4 pMD [facility] EMERGENCY RECORD Drug Name: Cipro I.V., Dose Ordered: 400 mg, Route: IV Piggy Back, Status: Given, Time: 21:14 08/15/2016, Drug Name: meclizine oral, Dose Ordered: 25 mg, Route: Oral, Status: Given, Time: 21:07 08/15/2016, Drug Name: Normal Saline, Dose Ordered: 1000 mL/hr, Route: IV Fluid Infusion, Status: Given, Time: 20:30 08/15/2016, Detailed record available in Medication Service section. DOCTOR NOTES TEXT: patient was complaining of chest pain, states she's had this before and is concerned. no radiation worse with respirations. EKG. (22:43 JPIP) Patient has small ketones in her urine but no AG. Doubt DKA, nonketotic hyperglycemia. Discussed findings with patient and grandmother. treatment plan discussed. Precautions given. (22:56 JPIP) PROBLEM LIST No recorded problems DIAGNOSIS (22:55 JPIP) FINAL: PRIMARY: nonketotic hyperglycemia, ADDITIONAL: Acute cystitis without hematuria. PRESCRIPTION Cipro tablet: TABLET : 500 mg : ORAL : Quantity: 1 Unit: tab(s) Route: ORAL Schedule: 2 times a day (before meals) Dispense: 10 May substitute. Refills: No Refills . (22:42 JPIP) NOTES: No refills. (22:42 JPIP) meclizine oral: TABLET, CHEWABLE : 25 mg : ORAL : Quantity: 1 Unit: tab(s) Route: ORAL Schedule: every 8 hours PRN Dispense: 30 May substitute. Refills: No Refills . (22:53 JPIP) NOTES: No refills. (22:53 JPIP) DISPOSITION PATIENT: Disposition Type: Discharge, Disposition: *Discharge Home, Condition: Improved. (22:55 JPIP) Patient left the department. (23:12 SDIS) Larsen: JPIP=DO Arrieta Joseph SDIS=DARRION Moreno, Esmer &a-1R&a+25V*p+0X*i4438A*c202B*c15G*c2P*p-0X&a-25V&a+1R Name: Glenna Silva : 1995 F21 MedRec: [id number] AcctNum: [id number] Prepared: Fabiola Aug 15, 2016 23:16 by Interface Page 4 of 4 pMD MTDD
--- NOTE | 2016-08-15 23:27 | PICIS ---
[facility] EMERGENCY RECORD TRIAGE (SunAug 15, 2016 19:52 SDIS) TRIAGE NOTES: TYPE 1 DIABETES. PT BGL READ "HI" AT HOME. REPORTS N/V. REPORTS SHE DID NOT MISS ANY DOSES OF PRESCRIBED MEDICATION. (SunAug 15, 2016 19:52 SDIS) PATIENT: NAME: Glenna Silva, AGE: 21, GENDER: female, : Sun1995, TIME OF GREET: SunAug 15, 2016 19:50, PREFERRED LANGUAGE: Tongan, ETHNICITY: Not or , FALL RISK: NO, ECODE BILLING MAP: [facility], SSN: [id number], Zip Code: [address], KG WEIGHT: 70.76 (est.), PHONE: , , , PERSON ID: [id number], PAYMENT: [facility] Medicaid, PCP: [facility] PCP. (SunAug 15, 2016 19:52 SDIS) COMPLAINT: HYPERGLYCEMIA. (SunAug 15, 2016 19:52 SDIS) ADMISSION: URGENCY: 3 Urgent, ADMISSION SOURCE: Home, TRANSPORT: Walk-in, BED: TRIAGE. (SunAug 15, 2016 19:52 SDIS) SIRS SCORING: Heart Rate 55-109 (0), Temp range 96.8-101.1 (0), respiratory rate 12-24 (0), Mental Status altered: no (0). (19:58 SDIS) TRIAGE SCREENING: Patient denies suicidal ideation, Patient denies presence of domestic violence. (19:58 SDIS) TREATMENTS IN PROGRESS: Treatments given Prehospital: 10 UNITS NOVOLOG X 2 DOSES FOUNDRY HAND. (19:58 SDIS) PROVIDERS: TRIAGE NURSE: Esmer Moreno RN. (SunAug 15, 2016 19:52 SDIS) VITAL SIGNS: BP 119/86, Pulse 91, Resp 18, (Non-Labored), Temp 98.2, (Oral), Pain 2, O2 Sat 98, on Room Air, Time 08/15/2016 19:51. (19:51 SDIS) PREVIOUS VISIT ALLERGIES: Bactrim, Ceclor, CeleXA, Phenergan, Reglan. (SunAug 15, 2016 19:52 SDIS) Bactrim, Ceclor, CeleXA, Phenergan, Reglan. (19:58 SDIS) KNOWN ALLERGIES Bactrim: Source: Parent, - Entered brand: Bactrim Tab -- Entered brand: Bactrim Tab Ceclor: Reaction: Anaphylaxis, Severity: Severe, Source: Patient, - "stop breathing" CeleXA Phenergan: Source: Patient, - Entered brand: Phenergan Tab -- Entered brand: Phenergan Tab -- Entered brand: Phenergan Tab -- Entered brand: Phenergan Tab -- Entered brand: Phenergan Tab -- Entered brand: Phenergan Tab -- sezuires Reglan: Source: Patient, - Entered brand: Reglan Tab -- Entered brand: Reglan Tab -- Entered brand: Reglan Tab -- Entered brand: Reglan Tab -- Entered brand: Reglan Tab -- Entered brand: Reglan Tab -- sezuires Zofran (PF) CURRENT MEDICATIONS NovoLIN 70/30: VIAL (ML) : Strength - 100 unit/mL (70-30) : SUBCUTANEOUS &a-1R&a+25V*p+0X*h5444K*c202B*c15G*c2P*p-0X&a-25V&a+1R Name: Glenna Silva : 1995 F21 MedRec: [id number] AcctNum: [id number] Prepared: SunAug 15, 2016 23:22 by Interface Page 1 of 17 pMD [facility] EMERGENCY RECORD Patient Dose: 22 units Subcutaneous 2 times a day. (19:55 SDIS) NovoLOG: VIAL (ML) : Strength - 100 unit/mL : SUBCUTANEOUS Patient Dose: * units Subcutaneous 3 times a day.SLIDING SCALE. (19:55 SDIS) OLANZapine: TABLET : Strength - 5 mg : ORAL Patient Dose: 5 mg Oral once a day. (19:56 SDIS) PROzac: CAPSULE : Strength - 40 mg : ORAL Patient Dose: 40 mg Oral once a day. (19:56 SDIS) VITAL SIGNS VITAL SIGNS: BP: 119/86, Pulse: 91, Resp: 18 (Non-Labored), Temp: 98.2 (Oral), Pain: 2, O2 sat: 98 on Room Air, Time: 08/15/2016 19:51. (19:51 SDIS) BP: 121/73, Pulse: 81, Resp: 20, O2 sat: 99 on Room Air, Time: 08/15/2016 22:15. (22:15 SDIS) (22:24 SDIS) BP: 127/75, Pulse: 83, Resp: 18, O2 sat: 95 on Room Air, Time: 08/15/2016 21:15. (21:15 SDIS) BP: 129/65, Pulse: 89, Resp: 18, Temp: 98.1 (Oral), Pain: 0, O2 sat: 98 on Room Air, Time: 08/15/2016 23:05. (23:05 SDIS) NURSING ASSESSMENT: ABDOMEN (20:51 SDIS) CONSTITUTIONAL: Patient arrives ambulatory, Gait steady, History obtained from patient, Patient appears comfortable, Patient cooperative, Patient alert, Oriented to person, place and time, Skin warm, Skin dry, Skin normal in color, Mucous membranes pink, Mucous membranes moist, Patient complains of HYPERGLYCEMIA, PT HAS H/O DIABETES TYPE 1, REPORTS SHE HAS NOT MISSED ANY DOSES OF INSULIN BUT HAD A "HI" READING AT HOME. REPORTS N/V AT HOME. NAD NOTED. REPORTS 2/10 ABD DISCOMFORT. PAIN: diffusely, on a scale 0-10 patient rates pain as 2. ABDOMEN: Abdomen assessment findings include abdomen symmetrical, Abdomen soft, Associated with nausea, Associated with vomiting, history of vomiting. GENITOURINARY FEMALE: no associated urinary complaints. NURSING PROCEDURE: BEDSIDE TESTING PATIENT IDENTIFIER: Patient actively involved in identification process, Patient's identity verified by patient stating name, Patient's identity verified by patient stating date, Patient's identity verified by hospital ID bracelet. (20:00 SDIS) Patient actively involved in identification process, Patient's identity verified by patient stating name, Patient's identity verified by patient stating date, Patient's identity verified by hospital ID bracelet. (21:54 SDIS) &a-1R&a+25V*p+0X*s0013A*c202B*c15G*c2P*p-0X&a-25V&a+1R Name: Glenna Silva : 1995 F21 MedRec: [id number] AcctNum: [id number] Prepared: Fabiola Aug 15, 2016 23:22 by Interface Page 2 of 17 pMD [facility] EMERGENCY RECORD Patient actively involved in identification process, Patient's identity verified by patient stating name, Patient's identity verified by patient stating date, Patient's identity verified by hospital ID bracelet. (23:05 SDIS) GLUCOSE: Glucose testing indicated for diabetic patient, Glucose testing indicated for hyperglycemia, Capillary blood sample, Result (mg/dl) 573. (20:00 SDIS) Glucose testing indicated for hyperglycemia, Capillary blood sample, Result (mg/dl) 328. (21:54 SDIS) Glucose testing indicated for diabetic patient, Glucose testing indicated for hyperglycemia, Capillary blood sample, Result (mg/dl) 287. (23:05 SDIS) FOLLOW-UP: After procedure, results given to Dr. ARRIETA. (20:00 SDIS) After procedure, results given to Dr. ARRIETA. (:54 SDIS) After procedure, results given to Dr. ARRIETA. (23:05 SDIS) NURSING PROCEDURE: COMMUNICATIONS (20:26 SDIS) COMMUNICATIONS: Critical lab value, received at 2025, received from mari, Critical lab result: co2 35, venous o2 109, given to DAREK, results read back and verified. NURSING PROCEDURE: DISCHARGE NOTE (23:12 SDIS) DISCHARGE: Patient discharged to home, ambulating without assistance, family driving, accompanied by parent, Summary of Care printed/ provided, Transition record given to patient, Discharge instructions given to patient, Simple or moderate discharge teaching performed, Prescriptions given and instructions on side effects given, Above person(s) verbalized understanding of discharge instructions and follow-up care, Patient treated and evaluated by physician. BELONGINGS: Belongings and valuables with patient at time of discharge include:, Belongings remain with patient, Valuables remain with patient. NURSING PROCEDURE: IV (20:02 SDIS) PATIENT IDENITIFIER: Patient actively involved in identification process, Patient's identity verified by patient stating name, Patient's identity verified by patient stating date, Patient's identity verified by hospital ID bracelet. IV SITE 1: IV therapy indicated for hydration, IV therapy indicated for medication administration, IV established, to the left hand, using a 20 gauge catheter, in one attempt, IV site prepped with chloraprep, Saline lock established, Flushed with normal saline (mls): 10, Labs drawn at time of placement, labeled in the presence of the patient and sent to lab. NURSING PROCEDURE: URINE COLLECTION (20:02 SDIS) PATIENT IDENTIFIER: Patient actively involved in identification process, Patient's identity verified by patient stating name, &a-1R&a+25V*p+0X*d3475G*c202B*c15G*c2P*p-0X&a-25V&a+1R Name: Glenna Silva : 1995 F21 MedRec: [id number] AcctNum: [id number] Prepared: SunAug 15, 2016 23:22 by Interface Page 3 of 17 D [facility] EMERGENCY RECORD Patient's identity verified by patient stating date, Patient's identity verified by hospital ID bracelet. URINE COLLECTION FEMALE: Urine collected by mid-stream clean catch, Output amount (mL) 80, urine yellow in color, and clear, Specimen labeled in the presence of the patient and sent to lab, Specimen obtained for culture labeled in the presence of the patient and sent to lab. ORDER DETAILS Order Name: BLOOD GLUCOSE MONITOR, Status: Done, Time: 21:56 08/15/2016, User: ALEXI, - Ordered for: DO Arrieta Joseph, - Entered by: DO Arrieta Joseph - SunAug 15, 2016 21:36, - Quantity: 1, Order Name: BLOOD GLUCOSE MONITOR, Status: Done, Time: 23:05 08/15/2016, User: ALEXI, - Ordered for: DO Arrieta Joseph, - Entered by: DO Arrieta Joseph - SunAug 15, 2016 22:58, - Quantity: 1, Order Name: CBC with Differential, Status: Active, Time: 20:02 08/15/2016, User: SYLWIA, - Ordered for: DO Arrieta Joseph, - Entered by: DO Arrieta Joseph - SunAug 15, 2016 20:02, - Quantity: 1, Order Name: Comprehensive Metabolic Panel, Status: Active, Time: 20:02 08/15/2016, User: SYLWIA, - Ordered for: DO Arrieta Joseph, - Entered by: DO Arrieta Joseph - SunAug 15, 2016 20:02, - Quantity: 1, Order Name: Magnesium, Status: Active, Time: 20:04 08/15/2016, User: SYLWIA, - Ordered for: DO Arrieta Joseph, - Entered by: DO Arrieta Joseph - SunAug 15, 2016 20:04, - Quantity: 1, Order Name: Test, Urine (BHCG), Status: Active, Time: 20:16 08/15/2016, User: SYLWIA, - Ordered for: DO Arrieta Joseph, - Entered by: DO Arrieta Joseph - SunAug 15, 2016 20:16, - Quantity: 1, Order Name: SALINE LOCK, Status: Done, Time: 20:27 08/15/2016, User: ALEXI, - Ordered for: DO Arrieta Joseph, - Entered by: DO Arrieta Joseph - SunAug 15, 2016 20:02, - Quantity: 1, Order Name: Urinalysis w/ Rflx Microscopic, Status: Active, Time: 20:02 08/15/2016, User: SYLWIA, - Ordered for: DO Arrieta Joseph, - Entered by: DO Arrieta Joseph - SunAug 15, 2016 20:02, - Quantity: 1, &a-1R&a+25V*p+0X*j7319E*c202B*c15G*c2P*p-0X&a-25V&a+1R Name: Glenna Silva : 1995 F21 MedRec: [id number] AcctNum: [id number] Prepared: SunAug 15, 2016 23:22 by Interface Page 4 of 17 pMD [facility] EMERGENCY RECORD Order Name: VBG (For BUR,MAD, and MONSERRAT), Status: Active, Time: 20:02 08/15/2016, User: SYLWIA, - Ordered for: DO Arrieta Joseph, - Entered by: DO Arrieta Joseph - SunAug 15, 2016 20:02, - Quantity: 1. MEDICATION ADMINISTRATION SUMMARY Drug Name: Normal Saline, Dose Ordered: 1000 mL/hr, Route: IV Fluid Infusion, Status: Ordered, Time: 21:37 08/15/2016, Drug Name: Normal Saline, Dose Ordered: 1000 mL/hr, Route: IV Fluid Infusion, Status: Given, Time: 21:35 08/15/2016, Drug Name: HumuLIN R, Dose Ordered: 10 units, Route: IV Push, Status: Given, Time: 21:14 08/15/2016, Drug Name: Cipro I.V., Dose Ordered: 400 mg, Route: IV Piggy Back, Status: Given, Time: 21:14 08/15/2016, Drug Name: meclizine oral, Dose Ordered: 25 mg, Route: Oral, Status: Given, Time: 21:07 08/15/2016, Drug Name: Normal Saline, Dose Ordered: 1000 mL/hr, Route: IV Fluid Infusion, Status: Given, Time: 20:30 08/15/2016, Detailed record available in Medication Service section. MEDICATION SERVICE Cipro I.V.: Order: Cipro I.V. (ciprofloxacin lactate) - Dose: 400 mg : IV Piggy Back Schedule: Now Ordered by: Randy Arrieta DO Entered by: Randy Arrieta DO SunAug 15, 2016 21:00 , Acknowledged by: Esmer Moreno RN SunAug 15, 2016 21:07 Documented as given by: Esmer Moreno RN SunAug 15, 2016 21:14 Patient, Medication, Dose, Route and Time verified prior to administration. IV SITE #1 IVPB or drip, subsequent infusion, Premixed, via primary tubing, on an IV pump, at 200 ml/hr, Connections checked prior to administration, Line traced prior to administration, Catheter placement confirmed via flush prior to administration, IV site without signs or symptoms of infiltration during medication administration, No swelling during administration, No drainage during administration, IV flushed after administration, Correct patient, time, route, dose and medication confirmed prior to administration, Patient advised of actions and side-effects prior to administration, Allergies confirmed and medications reviewed prior to administration, NO BC'S NEEDED. : Follow Up : No signs or symptoms of allergic reaction noted, _IV SITE #1:_, Medication infusion discontinued, on SunAug 15, 2016 22:15, Total infusion time IV site 1 1 hour, 5 minutes, ., Total amount infused: 200MLS, IV Line flushed after administration. (22:15 SDIS) HumuLIN R: Order: HumuLIN R (insulin regular, human) - Dose: 10 units : IV Push &a-1R&a+25V*p+0X*f3680F*c202B*c15G*c2P*p-0X&a-25V&a+1R Name: Glenna Silva : 1995 F21 MedRec: [id number] AcctNum: [id number] Prepared: SunAug 15, 2016 23:22 by Interface Page 5 of 17 pMD [facility] EMERGENCY RECORD Schedule: Now Ordered by: Randy Arrieta DO Entered by: Randy Arrieta DO SunAug 15, 2016 20:57 , Acknowledged by: Esmer Moreno RN SunAug 15, 2016 21:07, Co-signed by: Tamra Rodriguez RN SunAug 15, 2016 21:10, Co-signed by: Tamra Rodriguez RN SunAug 15, 2016 21:11 Documented as given by: Esmer Moreno RN SunAug 15, 2016 21:14 Patient, Medication, Dose, Route and Time verified prior to administration. IV SITE #1 IVP, subsequent different medication, Slowly, Connections checked prior to administration, Line traced prior to administration, Catheter placement confirmed via flush prior to administration, IV site without signs or symptoms of infiltration during medication administration, No swelling during administration, No drainage during administration, IV flushed after administration, Correct patient, time, route, dose and medication confirmed prior to administration, Patient advised of actions and side-effects prior to administration, Allergies confirmed and medications reviewed prior to administration. meclizine oral: Order: meclizine oral (meclizine HCl) - Dose: 25 mg : Oral Schedule: Now Ordered by: Randy Arrieta DO Entered by: Randy Arrieta DO SunAug 15, 2016 20:57 , Acknowledged by: Esmer Moreno RN SunAug 15, 2016 21:07 Documented as given by: Esmer Moreno RN SunAug 15, 2016 21:07 Patient, Medication, Dose, Route and Time verified prior to administration. Site: Medication administered P.O., Correct patient, time, route, dose and medication confirmed prior to administration, Patient advised of actions and side-effects prior to administration, Allergies confirmed and medications reviewed prior to administration. Normal Saline: Order: Normal Saline (0.9 % sodium chloride) - Dose: 1000 mL/hr : IV Fluid Infusion Schedule: Now Ordered by: Randy Arrieta DO Entered by: Randy Arrieta DO SunAug 15, 2016 20:28 Documented as given by: Esmer Moreno RN SunAug 15, 2016 20:30 Patient, Medication, Dose, Route and Time verified prior to administration. IV SITE #1 IV fluids established for hydration, IV SITE #1 into left hand, IV SITE #1 1st bag hung, amount 1 Liter hung, IV SITE #1 bolus of 1000 ml established, IV SITE #1 Rate of bolus, wide open, via primary tubing, Connections checked prior to administration, Line traced prior to administration, Catheter placement confirmed via flush prior to administration, IV site without signs or symptoms of infiltration during medication administration, No swelling during administration, No drainage during administration, IV flushed after administration, Correct patient, time, route, dose and medication confirmed prior to administration, Patient advised of actions and side-effects prior to administration, Allergies confirmed and &a-1R&a+25V*p+0X*o2227I*c202B*c15G*c2P*p-0X&a-25V&a+1R Name: Glenna Silva : 1995 F21 MedRec: [id number] AcctNum: [id number] Prepared: SunAug 15, 2016 23:22 by Interface Page 6 of 17 D [facility] EMERGENCY RECORD medications reviewed prior to administration. Normal Saline: Order: Normal Saline (0.9 % sodium chloride) - Dose: 1000 mL/hr : IV Fluid Infusion Schedule: Now Ordered by: Randy Arrieta DO Entered by: Randy Arrieta DO SunAug 15, 2016 20:56 , Acknowledged by: Esmer Moreno RN SunAug 15, 2016 20:56 Documented as given by: Esmer Moreno RN SunAug 15, 2016 21:35 Patient, Medication, Dose, Route and Time verified prior to administration. IV SITE #1 IV fluids established for hydration, IV SITE #1 into left hand, IV SITE #1 2nd bag hung, amount 1 Liter hung, IV SITE #1 bolus of 1000 ml established, IV SITE #1 Rate of bolus, wide open, via primary tubing, Connections checked prior to administration, Line traced prior to administration, Catheter placement confirmed via flush prior to administration, IV site without signs or symptoms of infiltration during medication administration, No swelling during administration, No drainage during administration, IV flushed after administration, Correct patient, time, route, dose and medication confirmed prior to administration, Patient advised of actions and side-effects prior to administration, Allergies confirmed and medications reviewed prior to administration. Normal Saline: Order: Normal Saline (0.9 % sodium chloride) - Dose: 1000 mL/hr : IV Fluid Infusion Schedule: Now Ordered by: Randy Arrieta DO Entered by: Randy Arrieta DO SunAug 15, 2016 21:37 , Acknowledged by: Esmer Moreno RN SunAug 15, 2016 21:43. HPI DIABETES (22:18 JPIP) CHIEF COMPLAINT: Denies hypoglycemia, Patient presents for evaluation of hyperglycemia, Pre-hospital or triage blood sugar greater than 400, Patient presents for evaluation of home monitor read "HI". HISTORIAN: History provided by patient. LOCATION: No localizing symptoms. SEVERITY: Current severity of pain rated as 2/10. TIME COURSE: Sudden onset of symptoms, Date and time of onset was 2-3 days, There has been no change in the patient's symptoms over time, are constant. ASSOCIATED WITH: No associated dizziness, No associated fever, No associated illness, No associated injury, No associated loss of consciousness, No associated upper respiratory infection, No associated vomiting. EXACERBATED BY: Patient's condition exacerbated by nothing. RELIEVED BY: Patient's condition relieved by nothing. ROS (22:19 JPIP) CONSTITUTIONAL: Historian denies chills, denies fever. ENT: Historian denies dysphagia, denies otalgia, denies sinus pain, denies sore throat. &a-1R&a+25V*p+0X*s4220Y*c202B*c15G*c2P*p-0X&a-25V&a+1R Name: Glenna Silva : 1995 F21 MedRec: [id number] AcctNum: [id number] Prepared: SunAug 15, 2016 23:22 by Interface Page 7 of 17 pMD [facility] EMERGENCY RECORD CARDIOVASCULAR: Historian denies chest pain, denies dyspnea on exertion. RESPIRATORY: Historian denies cough, denies shortness of breath. GI: Historian reports nausea. GENITOURINARY FEMALE: Historian denies dysuria, denies frequency, denies hematuria, denies , denies urgency. MUSCULOSKELETAL: Historian reports myalgias. SKIN: Historian denies rash, denies skin changes, denies skin lesions. NEUROLOGIC: Historian denies confusion, denies dizziness, denies headache. ENDOCRINE: Historian reports polyuria. NOTES: All systems reviewed, negative except as described above. PAST MEDICAL HISTORY MEDICAL HISTORY: Past medical history includes history of diabetes, Type I, on insulin, Notes: BOARDERLINE PERSONALITY DISORDER,. (19:58 SDIS) FEMALE SURGICAL HISTORY: TUBES IN EARS. (19:58 SDIS) PSYCHIATRIC HISTORY: Psychiatric history includes, anxiety, depression. (19:58 SDIS) SOCIAL HISTORY: Patient drinks socially, once a month, Patient denies drug use, Patient has no smoking history. (19:58 SDIS) NOTES: Nursing records reviewed, Medication list reviewed. (22:21 JPIP) PHYSICAL EXAM (22:20 JPIP) CONSTITUTIONAL: Vital Signs Reviewed, Patient afebrile, Pulse normal, Blood pressure normal bilaterally, Respiratory rate normal, Patient appears, uncomfortable, Patient alert and oriented to person, place and time, Nursing notes reviewed. HEAD: Head exam included findings of head atraumatic, normocephalic. EYES: Eye exam included findings of eyelids normal to inspection, Conjunctiva normal, Sclera normal, no periorbital ecchymosis, no periorbital edema, no periorbital erythema. ENT: Pharynx exam normal, not injected, no swelling, symmetrical, Uvula exam normal, midline, no edema, Mouth exam included findings of, mucous membranes tacky. NECK: Neck exam included findings of normal range of motion, Trachea midline, no cervical adenopathy, no tenderness. RESPIRATORY CHEST: Respiratory exam included findings of no respiratory distress, Breath sounds clear, No wheezing, No rales, No rhonchi, Breath sounds not absent, Breath sounds not diminished. CARDIOVASCULAR: Cardiovascular exam included findings of heart rate regular rate and rhythm, Heart sounds normal, no murmurs, no rub. ABDOMEN FEMALE: Abdominal exam included findings of abdomen nontender, Bowel sounds, hypoactive, Liver &a-1R&a+25V*p+0X*t5470B*c202B*c15G*c2P*p-0X&a-25V&a+1R Name: Glenna Silva : 1995 F21 MedRec: [id number] AcctNum: [id number] Prepared: Fabiola Aug 15, 2016 23:22 by Interface Page 8 of 17 pMD [facility] EMERGENCY RECORD normal, Spleen normal, no distension, no mass, no pulsatile masses, no peritoneal signs, no rigidity, no guarding, no rebound. BACK: no costovertebral angle tenderness. UPPER EXTREMITY: Upper extremity exam included findings of inspection normal, Range of motion normal. LOWER EXTREMITY: Lower extremity exam included findings of inspection normal, Range of motion normal. NEURO: Laly coma scale 15, Neuro exam findings include patient oriented to person, place and time, Speech normal, no focal motor deficits. SKIN: Skin exam included findings of skin warm, dry, and normal in color, excoriated acne on chest and shoulders. LYMPHATIC: Lymphatic exam included findings of cervical nodes normal, Submandibular normal. PSYCHIATRIC: Psychiatric exam included findings of patient oriented to person place and time, Normal affect. LAB INTERPRETATION (21:46 JPIP) INTERPRETATION: I reviewed the lab results, CBC normal, Chemistry abnormal, Sodium decreased, Chloride elevated, Glucose elevated, Liver functions normal, Urinalysis abnormal, positive for leukocytes, positive for bacteria, positive for glucose, Urine HCG negative, VBG 7.41, CO2 35, MAG 1.9. EVENTS TRANSFER: Triage to Emergency Triage. (19:52 SDIS) Emergency Triage to Emergency Room -03. (19:56 SDIS) Removed from Emergency Emergency Room -03. (23:12 SDIS) EKG INTERPRETATION (21:46 JPIP) MONITOR STRIP: teletypesetter monitor strip interpreted by Emergency Department Physician, Monitor strip shows normal sinus rhythm, with no ectopics. 12 LEAD EKG INTERPRETATION: 12 lead EKG interpreted by Emergency Department Physician at time of study, 12 lead EKG shows normal sinus rhythm, Rate (beats per minute): 81, with no ectopics, Interpretation: normal EKG, Conduction normal, ST segments normal, T waves normal, Dawson normal, Clinical impression: Normal EKG. O2SAT INTERPRETATION (20:29 JPIP) O2SAT: Continuous pulse oximetry, Oxygen saturation 98%, on room air, Oxygen saturation interpretation: Normal, No intervention required. DOCTOR NOTES TEXT: patient was complaining of chest pain, states she's had this before and is concerned. no radiation worse with respirations. EKG. (22:43 JPIP) &a-1R&a+25V*p+0X*g4908C*c202B*c15G*c2P*p-0X&a-25V&a+1R Name: Glenna Silva : 1995 F21 MedRec: [id number] AcctNum: [id number] Prepared: Fabiola Aug 15, 2016 23:22 by Interface Page 9 of 17 pMD [facility] EMERGENCY RECORD Patient has small ketones in her urine but no AG. Doubt DKA, nonketotic hyperglycemia. Discussed findings with patient and grandmother. treatment plan discussed. Precautions given. (22:56 JPIP) PROBLEM LIST No recorded problems DIAGNOSIS (22:55 JPIP) FINAL: PRIMARY: nonketotic hyperglycemia, ADDITIONAL: Acute cystitis without hematuria. DISPOSITION PATIENT: Disposition Type: Discharge, Disposition: *Discharge Home, Condition: Improved. (22:55 JPIP) Patient left the department. (23:12 SDIS) INSTRUCTION (22:54 JPIP) DISCHARGE: HYPERGLYCEMIA DIABETIC, UTI CYSTITIS FEMALE ADULT. SPECIAL: Finish all your antibiotics Follow up with Primary Care Physician within 72 hours Call your Primary Care Physician in the morning for a follow up appointment Return to the Emergency Department for increased symptoms problems or concerns. PRESCRIPTION Cipro tablet: TABLET : 500 mg : ORAL : Quantity: 1 Unit: tab(s) Route: ORAL Schedule: 2 times a day (before meals) Dispense: 10 May substitute. Refills: No Refills . (22:42 JPIP) NOTES: No refills. (22:42 JPIP) meclizine oral: TABLET, CHEWABLE : 25 mg : ORAL : Quantity: 1 Unit: tab(s) Route: ORAL Schedule: every 8 hours PRN Dispense: 30 May substitute. Refills: No Refills . (22:53 JPIP) NOTES: No refills. (22:53 JPIP) IMAGING (22:46 MVIL) *EKG: Image captured from scanner. RESULTS LABORATORY: CBC with Differential Collection DT: SunAug 15, 2016 20:20, White Blood Cell (WBC) Count 8.5 thou/uL, Range (4.8-10.8), Red Blood Cell (RBC) Count 4.47 mill/uL, Range (4.20-5.40), Hemoglobin 13.1 g/dL, Range (12.0-16.0), Hematocrit 40.7 %, Range (36.0-47.0), Mean Corpuscular Volume 91.0 fl, Range (81.0-99.0), Mean Corpuscular Hemoglobin 29.3 pg, Range (27.0-31.0), &a-1R&a+25V*p+0X*k7315J*c202B*c15G*c2P*p-0X&a-25V&a+1R Name: Glenna Silva : 1995 F21 MedRec: [id number] AcctNum: [id number] Prepared: SunAug 15, 2016 23:22 by Interface Page 10 of 17 pMD [facility] EMERGENCY RECORD Mean Corpuscular HGB CONC 32.2 g/dL, Range (32.0-36.0), *RBC Distribution Width 10.9 - L %, Range (11.5-14.5), Platelet Count 244 thou/uL, Range (130-400), Mean Platelet Volume 7.4 fL, Range (7.4-10.4), %Neutrophils 55.7 %, Range (42.0-75.0), %Lymphocytes 34.0 %, Range (21.0-51.0), %Monocytes 6.2 %, Range (0.0-10.0), %Eosinophils 3.0 %, Range (0.0-10.0), *%Basophils 1.2 - H %, Range (0.0-1.0), #Neutrophils 4.7 thou/uL, Range (1.40-6.50), #Lymphocytes 2.9 thou/uL, Range (1.20-3.40), #Monocytes 0.5 thou/uL, Range (0.11-0.59), #Eosinphils 0.3 thou/uL, Range (0.0-0.7), #Basophils 0.1 thou/uL, Range (0.0-0.2). (20:28 [facility]) Blood Gas-Venous Collection DT: SunAug 15, 2016 20:20, *pH (venous) 7.410 - H , Range (7.34-7.37), *CO2 Tension (PvCO2) 35.0 - *L mmHg, Range (44-46), Results called to, and verbally verified through read-back by: LIZZETH , @ENTER PERSON CALLED IN THE BRACKETS. by: Margarito Corona on 08/15/16 at 2024., *O2 Tension (PvO2) 109.0 - *H mmHg, Range (38-42), Results called to, and verbally verified through read-back by: LIZZETH , @ENTER PERSON CALLED IN THE BRACKETS. by: Margarito Corona on 08/15/16 at 2025., *Actual Bicarbonate (HCO3v) 22 - L mEq/L, Range (24-30), Base Excess -2.0 mEq/L, Range (-2 - +2), *O2 Saturation-measured venous 98.0 - H %, Range (60-80), Hemoglobin (Hb) 13.0 g/dL, Range (11.7-15.5). (20:28 [facility]) CBC with Differential Collection DT: SunAug 15, 2016 20:20, White Blood Cell (WBC) Count 8.5 thou/uL, Range (4.8-10.8), Red Blood Cell (RBC) Count 4.47 mill/uL, Range (4.20-5.40), Hemoglobin 13.1 g/dL, Range (12.0-16.0), Hematocrit 40.7 %, Range (36.0-47.0), Mean Corpuscular Volume 91.0 fl, Range (81.0-99.0), Mean Corpuscular Hemoglobin 29.3 pg, Range (27.0-31.0), Mean Corpuscular HGB CONC 32.2 g/dL, Range (32.0-36.0), *RBC Distribution Width 10.9 - L %, Range (11.5-14.5), Platelet Count 244 thou/uL, Range (130-400), Mean Platelet Volume 7.4 fL, Range (7.4-10.4), %Neutrophils 55.7 %, Range (42.0-75.0), %Lymphocytes 34.0 %, Range (21.0-51.0), %Monocytes 6.2 %, Range (0.0-10.0), %Eosinophils 3.0 %, Range (0.0-10.0), *%Basophils 1.2 - H %, Range (0.0-1.0), #Neutrophils 4.7 thou/uL, Range (1.40-6.50), #Lymphocytes 2.9 thou/uL, Range (1.20-3.40), #Monocytes 0.5 thou/uL, Range (0.11-0.59), #Eosinphils 0.3 thou/uL, Range (0.0-0.7), &a-1R&a+25V*p+0X*v6964J*c202B*c15G*c2P*p-0X&a-25V&a+1R Name: Glenna Silva : 1995 F21 MedRec: [id number] AcctNum: [id number] Prepared: SunAug 15, 2016 23:22 by Interface Page 11 of 17 pMD [facility] EMERGENCY RECORD #Basophils 0.1 thou/uL, Range (0.0-0.2). (20:29 [facility]) Blood Gas-Venous Collection DT: SunAug 15, 2016 20:20, *pH (venous) 7.410 - H , Range (7.34-7.37), *CO2 Tension (PvCO2) 35.0 - *L mmHg, Range (44-46), Results called to, and verbally verified through read-back by: LIZZETH , @ENTER PERSON CALLED IN THE BRACKETS. by: Margarito Corona on 08/15/16 at 2024., *O2 Tension (PvO2) 109.0 - *H mmHg, Range (38-42), Results called to, and verbally verified through read-back by: LIZZETH , @ENTER PERSON CALLED IN THE BRACKETS. by: Margarito Cj on 08/15/16 at 2025., *Actual Bicarbonate (HCO3v) 22 - L mEq/L, Range (24-30), Base Excess -2.0 mEq/L, Range (-2 - +2), *O2 Saturation-measured venous 98.0 - H %, Range (60-80), Hemoglobin (Hb) 13.0 g/dL, Range (11.7-15.5). (20:29 [facility]) CBC with Differential Collection DT: SunAug 15, 2016 20:20, White Blood Cell (WBC) Count 8.5 thou/uL, Range (4.8-10.8), Red Blood Cell (RBC) Count 4.47 mill/uL, Range (4.20-5.40), Hemoglobin 13.1 g/dL, Range (12.0-16.0), Hematocrit 40.7 %, Range (36.0-47.0), Mean Corpuscular Volume 91.0 fl, Range (81.0-99.0), Mean Corpuscular Hemoglobin 29.3 pg, Range (27.0-31.0), Mean Corpuscular HGB CONC 32.2 g/dL, Range (32.0-36.0), *RBC Distribution Width 10.9 - L %, Range (11.5-14.5), Platelet Count 244 thou/uL, Range (130-400), Mean Platelet Volume 7.4 fL, Range (7.4-10.4), %Neutrophils 55.7 %, Range (42.0-75.0), %Lymphocytes 34.0 %, Range (21.0-51.0), %Monocytes 6.2 %, Range (0.0-10.0), %Eosinophils 3.0 %, Range (0.0-10.0), *%Basophils 1.2 - H %, Range (0.0-1.0), #Neutrophils 4.7 thou/uL, Range (1.40-6.50), #Lymphocytes 2.9 thou/uL, Range (1.20-3.40), #Monocytes 0.5 thou/uL, Range (0.11-0.59), #Eosinphils 0.3 thou/uL, Range (0.0-0.7), #Basophils 0.1 thou/uL, Range (0.0-0.2). (20:29 [facility]) Blood Gas-Venous Collection DT: SunAug 15, 2016 20:20, *pH (venous) 7.410 - H , Range (7.34-7.37), *CO2 Tension (PvCO2) 35.0 - *L mmHg, Range (44-46), Results called to, and verbally verified through read-back by: LIZZTEH , @ENTER PERSON CALLED IN THE BRACKETS. by: Margarito Corona on 08/15/16 at 2024., *O2 Tension (PvO2) 109.0 - *H mmHg, Range (38-42), Results called to, and verbally verified through read-back by: LIZZETH , @ENTER PERSON CALLED IN THE BRACKETS. by: Margarito Corona on 08/15/16 at 2025., &a-1R&a+25V*p+0X*z1534C*c202B*c15G*c2P*p-0X&a-25V&a+1R Name: Glenna Silva : 1995 F21 MedRec: [id number] AcctNum: [id number] Prepared: SunAug 15, 2016 23:22 by Interface Page 12 of 17 pMD [facility] EMERGENCY RECORD *Actual Bicarbonate (HCO3v) 22 - L mEq/L, Range (24-30), Base Excess -2.0 mEq/L, Range (-2 - +2), *O2 Saturation-measured venous 98.0 - H %, Range (60-80), Hemoglobin (Hb) 13.0 g/dL, Range (11.7-15.5). (20:29 [facility]) CBC with Differential Collection DT: SunAug 15, 2016 20:20, White Blood Cell (WBC) Count 8.5 thou/uL, Range (4.8-10.8), Red Blood Cell (RBC) Count 4.47 mill/uL, Range (4.20-5.40), Hemoglobin 13.1 g/dL, Range (12.0-16.0), Hematocrit 40.7 %, Range (36.0-47.0), Mean Corpuscular Volume 91.0 fl, Range (81.0-99.0), Mean Corpuscular Hemoglobin 29.3 pg, Range (27.0-31.0), Mean Corpuscular HGB CONC 32.2 g/dL, Range (32.0-36.0), *RBC Distribution Width 10.9 - L %, Range (11.5-14.5), Platelet Count 244 thou/uL, Range (130-400), Mean Platelet Volume 7.4 fL, Range (7.4-10.4), %Neutrophils 55.7 %, Range (42.0-75.0), %Lymphocytes 34.0 %, Range (21.0-51.0), %Monocytes 6.2 %, Range (0.0-10.0), %Eosinophils 3.0 %, Range (0.0-10.0), *%Basophils 1.2 - H %, Range (0.0-1.0), #Neutrophils 4.7 thou/uL, Range (1.40-6.50), #Lymphocytes 2.9 thou/uL, Range (1.20-3.40), #Monocytes 0.5 thou/uL, Range (0.11-0.59), #Eosinphils 0.3 thou/uL, Range (0.0-0.7), #Basophils 0.1 thou/uL, Range (0.0-0.2). (20:29 [facility]) Blood Gas-Venous Collection DT: SunAug 15, 2016 20:20, *pH (venous) 7.410 - H , Range (7.34-7.37), *CO2 Tension (PvCO2) 35.0 - *L mmHg, Range (44-46), Results called to, and verbally verified through read-back by: LIZZETH , @ENTER PERSON CALLED IN THE BRACKETS. by: Margarito Corona on 08/15/16 at 2024., *O2 Tension (PvO2) 109.0 - *H mmHg, Range (38-42), Results called to, and verbally verified through read-back by: LIZZETH , @ENTER PERSON CALLED IN THE BRACKETS. by: Margarito Greenwoodip on 08/15/16 at 2025., *Actual Bicarbonate (HCO3v) 22 - L mEq/L, Range (24-30), Base Excess -2.0 mEq/L, Range (-2 - +2), *O2 Saturation-measured venous 98.0 - H %, Range (60-80), Hemoglobin (Hb) 13.0 g/dL, Range (11.7-15.5). (20:29 [facility]) CBC with Differential Collection DT: SunAug 15, 2016 20:20, White Blood Cell (WBC) Count 8.5 thou/uL, Range (4.8-10.8), Red Blood Cell (RBC) Count 4.47 mill/uL, Range (4.20-5.40), Hemoglobin 13.1 g/dL, Range (12.0-16.0), Hematocrit 40.7 %, Range (36.0-47.0), Mean Corpuscular Volume 91.0 fl, Range (81.0-99.0), Mean Corpuscular Hemoglobin 29.3 pg, Range (27.0-31.0), Mean Corpuscular HGB CONC 32.2 g/dL, Range (32.0-36.0), *RBC Distribution Width 10.9 - L %, Range (11.5-14.5), &a-1R&a+25V*p+0X*d7377P*c202B*c15G*c2P*p-0X&a-25V&a+1R Name: Glenna Silva : 1995 F21 MedRec: [id number] AcctNum: [id number] Prepared: SunAug 15, 2016 23:22 by Interface Page 13 of 17 pMD [facility] EMERGENCY RECORD Platelet Count 244 thou/uL, Range (130-400), Mean Platelet Volume 7.4 fL, Range (7.4-10.4), %Neutrophils 55.7 %, Range (42.0-75.0), %Lymphocytes 34.0 %, Range (21.0-51.0), %Monocytes 6.2 %, Range (0.0-10.0), %Eosinophils 3.0 %, Range (0.0-10.0), *%Basophils 1.2 - H %, Range (0.0-1.0), #Neutrophils 4.7 thou/uL, Range (1.40-6.50), #Lymphocytes 2.9 thou/uL, Range (1.20-3.40), #Monocytes 0.5 thou/uL, Range (0.11-0.59), #Eosinphils 0.3 thou/uL, Range (0.0-0.7), #Basophils 0.1 thou/uL, Range (0.0-0.2). (20:29 [facility]) Blood Gas-Venous Collection DT: SunAug 15, 2016 20:20, *pH (venous) 7.410 - H , Range (7.34-7.37), *CO2 Tension (PvCO2) 35.0 - *L mmHg, Range (44-46), Results called to, and verbally verified through read-back by: LIZZETH , @ENTER PERSON CALLED IN THE BRACKETS. by: Margarito Corona on 08/15/16 at 2024., *O2 Tension (PvO2) 109.0 - *H mmHg, Range (38-42), Results called to, and verbally verified through read-back by: LIZZETH , @ENTER PERSON CALLED IN THE BRACKETS. by: Margarito Corona on 08/15/16 at 2025., *Actual Bicarbonate (HCO3v) 22 - L mEq/L, Range (24-30), Base Excess -2.0 mEq/L, Range (-2 - +2), *O2 Saturation-measured venous 98.0 - H %, Range (60-80), Hemoglobin (Hb) 13.0 g/dL, Range (11.7-15.5). (20:29 [facility]) CBC with Differential Collection DT: SunAug 15, 2016 20:20, White Blood Cell (WBC) Count 8.5 thou/uL, Range (4.8-10.8), Red Blood Cell (RBC) Count 4.47 mill/uL, Range (4.20-5.40), Hemoglobin 13.1 g/dL, Range (12.0-16.0), Hematocrit 40.7 %, Range (36.0-47.0), Mean Corpuscular Volume 91.0 fl, Range (81.0-99.0), Mean Corpuscular Hemoglobin 29.3 pg, Range (27.0-31.0), Mean Corpuscular HGB CONC 32.2 g/dL, Range (32.0-36.0), *RBC Distribution Width 10.9 - L %, Range (11.5-14.5), Platelet Count 244 thou/uL, Range (130-400), Mean Platelet Volume 7.4 fL, Range (7.4-10.4), %Neutrophils 55.7 %, Range (42.0-75.0), %Lymphocytes 34.0 %, Range (21.0-51.0), %Monocytes 6.2 %, Range (0.0-10.0), %Eosinophils 3.0 %, Range (0.0-10.0), *%Basophils 1.2 - H %, Range (0.0-1.0), #Neutrophils 4.7 thou/uL, Range (1.40-6.50), #Lymphocytes 2.9 thou/uL, Range (1.20-3.40), #Monocytes 0.5 thou/uL, Range (0.11-0.59), #Eosinphils 0.3 thou/uL, Range (0.0-0.7), #Basophils 0.1 thou/uL, Range (0.0-0.2). (20:29 [facility]) Blood Gas-Venous Collection DT: CyAug 15, 2016 20:20, &a-1R&a+25V*p+0X*f3202T*c202B*c15G*c2P*p-0X&a-25V&a+1R Name: Glenna Silva : 1995 F21 MedRec: [id number] AcctNum: [id number] Prepared: SunAug 15, 2016 23:22 by Interface Page 14 of 17 pMD [facility] EMERGENCY RECORD *pH (venous) 7.410 - H , Range (7.34-7.37), *CO2 Tension (PvCO2) 35.0 - *L mmHg, Range (44-46), Results called to, and verbally verified through read-back by: LIZZETH , @ENTER PERSON CALLED IN THE BRACKETS. by: Margarito Corona on 08/15/16 at 2024., *O2 Tension (PvO2) 109.0 - *H mmHg, Range (38-42), Results called to, and verbally verified through read-back by: LIZZETH , @ENTER PERSON CALLED IN THE BRACKETS. by: Margarito Corona on 08/15/16 at 2025., *Actual Bicarbonate (HCO3v) 22 - L mEq/L, Range (24-30), Base Excess -2.0 mEq/L, Range (-2 - +2), *O2 Saturation-measured venous 98.0 - H %, Range (60-80), Hemoglobin (Hb) 13.0 g/dL, Range (11.7-15.5). (20:29 [facility]) Test, Urine (BHCG) Collection DT: SunAug 15, 2016 20:37, Test - Urine (BHCG) NEGATIVE , Range (NEGATIVE), Method of sensitivity- Indeterminant: results should be repeated, after 48 hours. Positive: results may be detected as early as 4-5 days before a first missed menses. Elimination of BHCG-, Elimination following first trimester D&C: 29-44 Days , Elimination following term : 8-24 Days , Specific [place] 1.025 , Range (1.002-1.036), A dilute urine specimen may, not contain franchise sales representative levels of hCG. If is still, suspected, a first morning urine specimen OR a random blood specimen should, be obtained from the patient 48-72 hours later and re-tested. , . (20:46 [facility]) Magnesium Collection DT: SunAug 15, 2016 20:20, Magnesium 1.9 mg/dL, Range (1.6-2.6), NOTE: Higher values can be expected in females during menses . (20:46 [facility]) Comprehensive Metabolic Panel Collection DT: SunAug 15, 2016 20:20, Critical Call Chemistry [id number] , Refer to Critical Value designated by an *L or *H , *Sodium 128 - L mmol/L, Range (136-145), Potassium 4.3 mmol/L, Range (3.5-5.1), *Chloride 96 - L mmol/L, Range (98-107), *Carbon Dioxide 18 - L mmol/L, Range (22-29), Anion Gap 18 mmol/L, Range (10-20), *BUN (Urea Nitrogen) 19 - H mg/dL, Range (7.0-18.7), Creatinine 1.04 mg/dL, Range (0.6-1.1), Estimated GFR-MDRD 66 , Reference Range for Estimated GFR: &a-1R&a+25V*p+0X*u0564W*c202B*c15G*c2P*p-0X&a-25V&a+1R Name: Glenna Silva : 1995 F21 MedRec: [id number] AcctNum: [id number] Prepared: SunAug 15, 2016 23:22 by Interface Page 15 of 17 pMD [facility] EMERGENCY RECORD Greater than 90, mL/min/1.73 m2 NOTE: The MDRD equation has not been validated for use, with the elderly (over 70 years of age), women, patients with, serious comorbid condition or persons with extremes of body size, muscle, mass, or nutritional status. , *Glucose 628 - *H mg/dL, Range (70-105), Critical value!, Calcium 9.2 mg/dL, Range (7.8-10.44), Bilirubin, Total 0.3 mg/dL, Range (0.2-1.2), Protein, Total 7.3 g/dL, Range (6.0-8.3), NOTE: Plasma values are generally 0.3 to 0.5 g/dL higher than serum values, due to the presence of fibrinogen. , Albumin 4.1 g/dL, Range (3.5-5.0), Globulin 3.2 g/dL, Range (2.4-3.5), Alb/Glob Ratio 1.3 g/dL, Range (1.2-2.2), Alkaline Phosphatase 71 U/L, Range (40-150), AST (SGOT) 10 U/L, Range (5-34), ALT (SGPT) 8 U/L, Range (0-55). (20:46 [facility]) Urinalysis w/ Rflx Microscopic Collection DT: SunAug 15, 2016 20:37, Color Colorless , Range (Yellow), , Clarity Hazy , Range (Clear), Specific [place], Urine 1.025 , Range (1.002-1.036), pH, Urine 5.0 , Range (5.0-9.0), *Leukocyte Trace - H , Range (Negative), Nitrite Negative , Range (Negative), Protein, Urine (Dipstick) Negative mg/dL, Range (Neg-Trace), *Glucose, Urine (Dipstick) >=1000 - H mg/dL, Range (Negative), *Ketone, Urine 15 - H mg/dL, Range (Negative), Urobilinogen 0.2 mg/dL, Range (0.2-1.0), Bilirubin Negative , Range (Negative), Blood, Urine Negative , Range (Negative). (20:55 [facility]) Urine Microscopic Collection DT: SunAug 15, 2016 20:37, RBC/HPF 0-3 HPF, Range (0-3), *WBC/HPF 7-10 - H HPF, Range (0-3), Squamous Epithelial 0-3 HPF, Range (0-3), *Bacteria/HPF 2+ - H HPF, Range (None Seen). (20:59 [facility]) Urinalysis w/ Rflx Microscopic Collection DT: SunAug 15, 2016 20:37, Color Colorless , Range (Yellow), , Clarity Hazy , Range (Clear), Specific [place], Urine 1.025 , Range (1.002-1.036), pH, Urine 5.0 , Range (5.0-9.0), *Leukocyte Trace - H , Range (Negative), Nitrite Negative , Range (Negative), Protein, Urine (Dipstick) Negative mg/dL, Range (Neg-Trace), *Glucose, Urine (Dipstick) >=1000 - H mg/dL, Range (Negative), *Ketone, Urine 15 - H mg/dL, Range (Negative), Urobilinogen 0.2 mg/dL, Range (0.2-1.0), &a-1R&a+25V*p+0X*k2436T*c202B*c15G*c2P*p-0X&a-25V&a+1R Name: Glenna Silva : 1995 F21 MedRec: [id number] AcctNum: [id number] Prepared: SunAug 15, 2016 23:22 by Interface Page 16 of 17 pMD [facility] EM[facility]GENCY RECORD Bilirubin Negative , Range (Negative), Blood, Urine Negative , Range (Negative). (20:59 [facility]) Accuchek Collection DT: SunAug 15, 2016 21:59, *Accuc[place] 328 - H mg/dL, Range (70-110). (22:13 [facility]) Accuc[place]k Collection DT: SunAug 15, 2016 21:59, *Accuc[place] 328 - H mg/dL, Range (70-110). (22:13 [facility]) Larsen: ZARIAIP=DO Arrieta Joseph MVIL=DARRION Rodriguez, Tamra SDIS=DARRION Moreno, Esemr &a-1R&a+25V*p+0X*e5710O*c202B*c15G*c2P*p-0X&a-25V&a+1R Name: Glenna Silva : 1995 F21 MedRec: [id number] AcctNum: [id number] Prepared: SunAug 15, 2016 23:22 by Interface Page 17 of 17 pMD [facility]
== END 2016-08-15 23:12 | disposition home or self-care (01) ==
LOC: BURERS 19:50
DX: E10.65 Type 1 diabetes mellitus with hyperglycemia (principal); N30.00 Acute cystitis without hematuria; F41.9 Anxiety disorder, unspecified; F32.9 Major depressive disorder, single episode, unspecified; Z79.4 Long term (current) use of insulin
CPT/HCPCS: 36415; 36416; 80053; 81003; 81015; 81025; 82805; 83735; 85025; 96361; 96365; 96375; J0744; J1815

== ENCOUNTER 2016-08-18 11:02 | Emergency (ER) | payer MEDICAID, OTHER ==
[2016-08-18] MEDS ORDERED: Meclizine HCl 25 MG TAB ONE (11:16)
[2016-08-18 11:45] LABS: #Basophils 0.1 thou/uL (0.0-0.2); #Eosinphils 0.2 thou/uL (0.0-0.7); #Monocytes 0.4 thou/uL (0.11-0.59); #Neutrophils 3.8 thou/uL (1.40-6.50); %Basophils 1.4 % (0.0-1.0); %Eosinophils 3.5 % (0.0-10.0); %Monocytes 5.6 % (0.0-10.0); Hematocrit 45.4 % (36.0-47.0); Mean Platelet Volume 7.6 fL (7.4-10.4); Red Blood Cell (RBC) Count 5.04 mill/uL (4.20-5.40); White Blood Cell (WBC) Count 6.5 thou/uL (4.8-10.8)
[2016-08-18 11:51] LABS: Bilirubin Negative (Negative); Blood, Urine Negative (Negative); Glucose, Urine (Dipstick) 500 mg/dL (Negative); Ketone, Urine 80 mg/dL (Negative); Nitrite Negative (Negative); Protein, Urine (Dipstick) Negative (Neg-Trace); Urobilinogen 0.2 mg/dL (0.2-1.0)
[2016-08-18 11:53] LABS: ALT (SGPT) 11 U/L (0-55); AST (SGOT) 13 U/L (5-34); Alkaline Phosphatase 82 U/L (40-150); Anion Gap 25 mmol/L (10-20); BUN (Urea Nitrogen) 15 mg/dL (7.0-18.7); Bilirubin, Total 0.5 mg/dL (0.2-1.2); Calc. Creatinine Clearance 0 mL/min (70-130); Calcium 9.9 mg/dL (7.8-10.44); Carbon Dioxide 18 mmol/L (22-29); Chloride 96 mmol/L (98-107); Estimated GFR-MDRD 64; Globulin 3.8 g/dL (2.4-3.5); Lipase 17 U/L (8-78); Magnesium 2.2 mg/dL (1.6-2.6); Protein, Total 8.5 g/dL (6.0-8.3)
[2016-08-18] MEDS ORDERED: Insulin Regular 300 UNITS/3 ML VIAL ONE (12:20)
[2016-08-18] MEDS ORDERED: Ondansetron ODT 4 MG TAB ONE ×2 (13:08→17:34)
[2016-08-18 13:19] LABS: Base Excess -8.6 mEq/L (-2 - +2)
[2016-08-18 19:18] LABS: Anion Gap 12 mmol/L (10-20); BUN (Urea Nitrogen) 11 mg/dL (7.0-18.7); Calc. Creatinine Clearance 0 mL/min (70-130); Calcium 8.5 mg/dL (7.8-10.44); Carbon Dioxide 21 mmol/L (22-29); Chloride 108 mmol/L (98-107); Estimated GFR-MDRD Greater than 90
== END 2016-08-18 20:10 | disposition short-term general hospital (02) ==
LOC: BURERS 11:02
DX: E10.10 Type 1 diabetes mellitus with ketoacidosis without coma (principal); N30.00 Acute cystitis without hematuria; F41.9 Anxiety disorder, unspecified; F32.9 Major depressive disorder, single episode, unspecified; F60.3 Borderline personality disorder; Z79.899 Other long term (current) drug therapy
CPT/HCPCS: 36416; 80053; 81003; 82010; 82805; 83690; 83735; 85025; 94760; 96360; 96361; 96365; 96366; 96376; J1815; Q0162

== ENCOUNTER 2016-10-27 13:12 | Emergency (ER) | payer OTHER ==
[2016-10-27 13:55] LABS: Bilirubin Negative (Negative); Blood, Urine Negative (Negative); Clarity Slightly Cloudy (Clear); Glucose, Urine (Dipstick) Negative (Negative); Leukocyte Negative (Negative); Nitrite Negative (Negative); Protein, Urine (Dipstick) Negative (Neg-Trace); Urobilinogen 0.2 mg/dL (0.2-1.0)
[2016-10-27 13:56] LABS: Pregnancy Test - Urine (BHCG) NEGATIVE (NEGATIVE)
[2016-10-27 13:57] LABS: Pregu Control Bar Appear? YES (CONTROL BAR)
== END 2016-10-27 14:00 | disposition home or self-care (01) ==
LOC: BURERS 13:12
DX: R11.0 Nausea (principal); E10.9 Type 1 diabetes mellitus without complications; F32.9 Major depressive disorder, single episode, unspecified; F41.9 Anxiety disorder, unspecified; F20.9 Schizophrenia, unspecified; Z79.899 Other long term (current) drug therapy
CPT/HCPCS: 36416; 81003; 81025; 99283

== ENCOUNTER 2016-11-02 21:09 | Emergency (ER) | payer OTHER ==
[2016-11-02] MEDS ORDERED: Insulin Regular 300 UNITS/3 ML VIAL ONE (21:26)
[2016-11-02 21:32] LABS: #Basophils 0.1 thou/uL (0.0-0.2); #Eosinphils 0.1 thou/uL (0.0-0.7); #Lymphocytes 2.7 thou/uL (1.20-3.40); #Monocytes 0.6 thou/uL (0.11-0.59); #Neutrophils 4.1 thou/uL (1.40-6.50); %Basophils 0.9 % (0.0-1.0); %Eosinophils 1.6 % (0.0-10.0); %Lymphocytes 35.2 % (21.0-51.0); %Monocytes 7.5 % (0.0-10.0); %Neutrophils 54.9 % (42.0-75.0); Hemoglobin 13.6 g/dL (12.0-16.0); Mean Corpuscular HGB CONC 31.7 g/dL (32.0-36.0); Mean Corpuscular Hemoglobin 29.6 pg (27.0-31.0); Mean Corpuscular Volume 93.2 fl (81.0-99.0); Platelet Count 296 thou/uL (130-400); RBC Distribution Width 11.5 % (11.5-14.5); Red Blood Cell (RBC) Count 4.61 mill/uL (4.20-5.40); White Blood Cell (WBC) Count 7.5 thou/uL (4.8-10.8)
[2016-11-02 21:38] LABS: Base Excess 5.6 mEq/L (-2 - +2); Hemoglobin (Hb) 13.5 g/dL (11.7-15.5)
[2016-11-02 21:44] LABS: ALT (SGPT) 14 U/L (0-55); AST (SGOT) 15 U/L (5-34); Albumin 4.3 g/dL (3.5-5.0); Alkaline Phosphatase 83 U/L (40-150); Anion Gap 13 mmol/L (10-20); BUN (Urea Nitrogen) 12 mg/dL (7.0-18.7); Bilirubin Negative (Negative); Bilirubin, Total 0.5 mg/dL (0.2-1.2); Blood, Urine Negative (Negative); Calc. Creatinine Clearance 0 mL/min (70-130); Calcium 9.2 mg/dL (7.8-10.44); Carbon Dioxide 25 mmol/L (22-29); Chloride 94 mmol/L (98-107); Estimated GFR-MDRD 63; Globulin 3.2 g/dL (2.4-3.5); Glucose, Urine (Dipstick) 500 mg/dL (Negative); Leukocyte Negative (Negative); Lipase 25 U/L (8-78); Magnesium 1.9 mg/dL (1.6-2.6); Nitrite Negative (Negative); Potassium 4.5 mmol/L (3.5-5.1); Pregnancy Test - Urine (BHCG) NEGATIVE (NEGATIVE); Pregu Control Bar Appear? YES (CONTROL BAR); Protein, Total 7.5 g/dL (6.0-8.3); Protein, Urine (Dipstick) Negative (Neg-Trace); Sodium 127 mmol/L (136-145); Specific Gravity 1.029 (1.002-1.036); Urobilinogen 0.2 mg/dL (0.2-1.0)
[2016-11-02 21:45] LABS: Clarity Hazy (Clear); Specific Gravity, Urine 1.029 (1.002-1.036)
[2016-11-02 21:48] LABS: Glucose 710 mg/dL (70-105)
== END 2016-11-02 22:36 | disposition home or self-care (01) ==
LOC: BURERS 21:09
DX: E10.65 Type 1 diabetes mellitus with hyperglycemia (principal); F20.9 Schizophrenia, unspecified; Z79.899 Other long term (current) drug therapy; Z79.4 Long term (current) use of insulin
CPT/HCPCS: 36416; 80053; 81003; 81025; 82805; 83690; 83735; 85025; 96361; 96374; J1815

== ENCOUNTER 2016-11-03 14:13 | Emergency (ER) | payer OTHER ==
[2016-11-03] MEDS ORDERED: Insulin Regular 300 UNITS/3 ML VIAL ONE ×2 (14:22→15:49)
[2016-11-03 14:34] LABS: #Basophils 0.1 thou/uL (0.0-0.2); #Eosinphils 0.1 thou/uL (0.0-0.7); #Lymphocytes 1.7 thou/uL (1.20-3.40); #Monocytes 0.8 thou/uL (0.11-0.59); #Neutrophils 11.8 thou/uL (1.40-6.50); %Basophils 0.6 % (0.0-1.0); %Eosinophils 0.7 % (0.0-10.0); %Monocytes 5.2 % (0.0-10.0); %Neutrophils 81.5 % (42.0-75.0); Hemoglobin 13.5 g/dL (12.0-16.0); Mean Corpuscular HGB CONC 32.3 g/dL (32.0-36.0); Mean Corpuscular Hemoglobin 30.4 pg (27.0-31.0); Mean Corpuscular Volume 94.2 fl (81.0-99.0); Mean Platelet Volume 7.3 fL (7.4-10.4); Platelet Count 306 thou/uL (130-400); RBC Distribution Width 11.6 % (11.5-14.5); Red Blood Cell (RBC) Count 4.42 mill/uL (4.20-5.40); White Blood Cell (WBC) Count 14.5 thou/uL (4.8-10.8)
[2016-11-03 14:36] LABS: Bilirubin Negative (Negative); Blood, Urine Negative (Negative); Clarity Clear (Clear); Glucose, Urine (Dipstick) 500 mg/dL (Negative); Leukocyte Negative (Negative); Nitrite Negative (Negative); Protein, Urine (Dipstick) Negative (Neg-Trace); Urobilinogen 0.2 mg/dL (0.2-1.0); pH, Urine 5.5 (5.0-9.0)
[2016-11-03 14:42] LABS: Specific Gravity, Urine 1.005 (1.005-1.030)
[2016-11-03 14:45] LABS: Pregnancy Test - Urine (BHCG) NEGATIVE (NEGATIVE); Pregu Control Bar Appear? YES (CONTROL BAR); Specific Gravity 1.005 (1.002-1.036)
[2016-11-03 14:46] LABS: Anion Gap 20 mmol/L (10-20)
[2016-11-03 14:50] LABS: ALT (SGPT) 15 U/L (0-55); AST (SGOT) 18 U/L (5-34); Albumin 4.2 g/dL (3.5-5.0); Alkaline Phosphatase 88 U/L (40-150); BUN (Urea Nitrogen) 16 mg/dL (7.0-18.7); Bilirubin, Total 0.9 mg/dL (0.2-1.2); Calc. Creatinine Clearance 0 mL/min (70-130); Calcium 9.1 mg/dL (7.8-10.44); Carbon Dioxide 19 mmol/L (22-29); Chloride 96 mmol/L (98-107); Estimated GFR-MDRD 51; Globulin 3.3 g/dL (2.4-3.5); Glucose 793 mg/dL (70-105); Potassium 4.6 mmol/L (3.5-5.1); Protein, Total 7.5 g/dL (6.0-8.3); Sodium 130 mmol/L (136-145)
== END 2016-11-03 17:04 | disposition home or self-care (01) ==
LOC: BURERS 14:13
DX: E10.65 Type 1 diabetes mellitus with hyperglycemia (principal); F20.9 Schizophrenia, unspecified
CPT/HCPCS: 36415; 36416; 80053; 81003; 81025; 82010; 85025; 96361; 96372; 96374; J1815

== ENCOUNTER 2017-01-14 14:16 | Emergency (ER) | payer OTHER ==
[2017-01-14 14:38] LABS: #Basophils 0.1 thou/uL (0.0-0.2); #Lymphocytes 1.3 thou/uL (1.20-3.40); #Monocytes 0.7 thou/uL (0.11-0.59); #Neutrophils 9.9 thou/uL (1.40-6.50); %Basophils 0.6 % (0.0-1.0); %Eosinophils 0.3 % (0.0-10.0); %Lymphocytes 10.9 % (21.0-51.0); %Monocytes 5.4 % (0.0-10.0); %Neutrophils 82.8 % (42.0-75.0); Hemoglobin 13.6 g/dL (12.0-16.0); Mean Corpuscular HGB CONC 32.3 g/dL (32.0-36.0); Mean Corpuscular Hemoglobin 30.2 pg (27.0-31.0); Mean Corpuscular Volume 93.5 fl (81.0-99.0); Mean Platelet Volume 6.6 fL (7.4-10.4); Platelet Count 358 thou/uL (130-400); RBC Distribution Width 12.6 % (11.5-14.5)
[2017-01-14 14:49] LABS: Base Excess -7.9 mEq/L (-2 - +2); Hemoglobin (Hb) 13.4 g/dL (11.7-15.5)
[2017-01-14 14:54] LABS: ALT (SGPT) 41 U/L (8-55); AST (SGOT) 25 U/L (5-34); Albumin 4.4 g/dL (3.5-5.0); Alkaline Phosphatase 113 U/L (40-150); Anion Gap 23 mmol/L (10-20); BUN (Urea Nitrogen) 21 mg/dL (7.0-18.7); Bilirubin, Total 0.9 mg/dL (0.2-1.2); Calc. Creatinine Clearance 0 mL/min (70-130); Calcium 9.4 mg/dL (7.8-10.44); Carbon Dioxide 13 mmol/L (22-29); Chloride 95 mmol/L (98-107); Estimated GFR-MDRD 57; Globulin 3.7 g/dL (2.4-3.5); Potassium 4.2 mmol/L (3.5-5.1); Protein, Total 8.1 g/dL (6.0-8.3); Sodium 127 mmol/L (136-145)
[2017-01-14 14:55] LABS: BHCG - Serum Negative (NEGATIVE); Pregs Control Background? CLEAR/WHITE (CLR/WHITE); Pregs Control Bar Appear? YES (CONTROL BAR)
[2017-01-14 15:02] LABS: Glucose 598 mg/dL (70-105)
[2017-01-14 15:12] LABS: Bilirubin Negative (Negative); Blood, Urine Trace (Negative); Clarity Clear (Clear); Glucose, Urine (Dipstick) 500 mg/dL (Negative); Leukocyte Negative (Negative); Nitrite Negative (Negative); Protein, Urine (Dipstick) Negative (Neg-Trace); Urobilinogen 0.2 mg/dL (0.2-1.0)
[2017-01-14 15:13] LABS: Specific Gravity, Urine 1.005 (1.005-1.030)
[2017-01-14 15:14] LABS: Bacteria/HPF None Seen HPF (None Seen); RBC/HPF 0-3 HPF (0-3); Squamous Epithelial 0-3 HPF (0-3); WBC/HPF 0-3 HPF (0-3)
[2017-01-14] MEDS ORDERED: Insulin Regular 300 UNITS/3 ML VIAL ONE (15:21)
== END 2017-01-14 16:35 | disposition short-term general hospital (02) ==
LOC: BURERS 14:16
DX: E10.10 Type 1 diabetes mellitus with ketoacidosis without coma (principal); F20.9 Schizophrenia, unspecified; F60.3 Borderline personality disorder; Z79.899 Other long term (current) drug therapy; Z79.4 Long term (current) use of insulin
CPT/HCPCS: 36416; 80053; 81003; 81015; 82805; 84703; 85025; 96361; 96365; 36415-59; J1815

== ENCOUNTER 2022-08-18 11:48 | Emergency (ER) | payer OTHER ==
[2022-08-18 12:37] LABS: Bilirubin Negative (Negative); Blood, Urine Negative (Negative); Clarity Cloudy (Clear); Glucose, Urine (Dipstick) 500 mg/dL (Negative); Ketone, Urine Trace mg/dL (Negative); Leukocyte Trace (Negative); Nitrite Negative (Negative); Protein, Urine (Dipstick) Trace mg/dL (Neg-Trace); Urobilinogen 0.2 mg/dL (Less than 2)
[2022-08-18 12:40] LABS: #Basophils 0.1 thou/uL (0.0-0.2); #Eosinphils 0.1 thou/uL (0.0-0.7); #Lymphocytes 3.2 thou/uL (1.20-3.40); #Monocytes 0.5 thou/uL (0.11-0.59); #Neutrophils 4.1 thou/uL (1.40-6.50); %Basophils 1.8 % (0.0-1.0); %Eosinophils 1.5 % (0.0-10.0); %Lymphocytes 40.1 % (21.0-51.0); %Monocytes 5.6 % (0.0-10.0); %Neutrophils 50.9 % (42.0-75.0); Hemoglobin 14.9 g/dL (12.0-16.0); Mean Corpuscular HGB CONC 33.9 g/dL (32.0-36.0); Mean Corpuscular Hemoglobin 29.7 pg (27.0-31.0); Mean Corpuscular Volume 87.7 fl (78.0-98.0); Mean Platelet Volume 6.8 fL (7.4-10.4); Platelet Count 270 10x3/uL (130-400); RBC Distribution Width 11.2 % (11.5-14.5); Red Blood Cell (RBC) Count 5.01 mill/uL (4.20-5.40)
[2022-08-18] MEDS ORDERED: Ketorolac Tromethamine 30 MG/ML VIAL ONE (12:43)
[2022-08-18 12:44] LABS: Pregnancy Test - Urine (BHCG) Negative (Negative); Pregu Control Background? CLEAR/WHITE (CLR/WHITE); Pregu Control Bar Appear? YES (CONTROL BAR)
[2022-08-18 12:47] LABS: Bacteria/HPF 1+ HPF (None Seen); Mucous/LPF 1+ LPF (<2+); RBC/HPF 0-3 HPF (0-3); Squamous Epithelial 0-3 HPF (0-3)
[2022-08-18 12:52] LABS: ALT (SGPT) 13 U/L (8-55); AST (SGOT) 13 U/L (5-34); Albumin 4.5 g/dL (3.5-5.0); Alkaline Phosphatase 56 U/L (40-110); Anion Gap 14 mmol/L (10-20); BUN (Urea Nitrogen) 11 mg/dL (7.0-18.7); Bilirubin, Total 0.6 mg/dL (0.2-1.2); Calc. Creatinine Clearance 0 mL/min (70-130); Calcium 9.3 mg/dL (7.8-10.44); Carbon Dioxide 22 mmol/L (22-29); Chloride 103 mmol/L (98-107); Estimated GFR 102; Globulin 3.3 g/dL (2.4-3.5); Glucose 185 mg/dL (70-105); Protein, Total 7.8 g/dL (6.0-8.3); Sodium 135 mmol/L (136-145)
== END 2022-08-18 14:06 | disposition home or self-care (01) ==
LOC: BURERS 11:48
DX: N20.0 Calculus of kidney (principal); N83.8 Other noninflammatory disorders of ovary, fallopian tube and broad ligament; N39.0 Urinary tract infection, site not specified; E10.9 Type 1 diabetes mellitus without complications; Z79.4 Long term (current) use of insulin
CPT/HCPCS: 74176; 80053; 81003; 81015; 81025; 85025; 87077; 87086; 87186; 96374; J1885

== ENCOUNTER 2022-08-27 10:59 | Emergency (ER) | payer OTHER ==
[2022-08-27 12:18] LABS: #Basophils 0.1 thou/uL (0.0-0.2); #Eosinphils 0.1 thou/uL (0.0-0.7); #Lymphocytes 3.9 thou/uL (1.20-3.40); #Monocytes 0.7 thou/uL (0.11-0.59); #Neutrophils 4.2 thou/uL (1.40-6.50); %Basophils 1.3 % (0.0-1.0); %Eosinophils 1.2 % (0.0-10.0); %Lymphocytes 43.4 % (21.0-51.0); %Monocytes 7.6 % (0.0-10.0); %Neutrophils 46.6 % (42.0-75.0); Hemoglobin 13.4 g/dL (12.0-16.0); Mean Corpuscular HGB CONC 33.5 g/dL (32.0-36.0); Mean Corpuscular Hemoglobin 29.8 pg (27.0-31.0); Mean Corpuscular Volume 88.9 fl (78.0-98.0); Mean Platelet Volume 7.2 fL (7.4-10.4); Platelet Count 356 10x3/uL (130-400); RBC Distribution Width 11.2 % (11.5-14.5); Red Blood Cell (RBC) Count 4.48 mill/uL (4.20-5.40)
[2022-08-27 12:21] LABS: Bilirubin Small (Negative); Blood, Urine Negative (Negative); Clarity Slightly Cloudy (Clear); Glucose, Urine (Dipstick) 500 mg/dL (Negative); Ketone, Urine > or equal to 80 mg/dL (Negative); Leukocyte Negative (Negative); Nitrite Negative (Negative); Protein, Urine (Dipstick) 30 mg/dL (Neg-Trace); Specific Gravity, Urine 1.025 (1.005-1.030); Urobilinogen 0.2 mg/dL (Less than 2); pH, Urine 5.5 (5.0-9.0)
[2022-08-27 12:26] LABS: Pregnancy Test - Urine (BHCG) Negative (Negative); Pregu Control Background? CLEAR/WHITE (CLR/WHITE); Pregu Control Bar Appear? YES (CONTROL BAR); Specific Gravity 1.025 (1.002-1.036)
[2022-08-27 12:28] LABS: Mucous/LPF 3+ LPF (<2+)
[2022-08-27 12:30] LABS: Bacteria/HPF Rare-Few HPF (None Seen); RBC/HPF 0-3 HPF (0-3)
[2022-08-27 12:38] LABS: ALT (SGPT) 14 U/L (8-55); AST (SGOT) 12 U/L (5-34); Albumin 4.7 g/dL (3.5-5.0); Alkaline Phosphatase 60 U/L (40-110); Amphetamine Not Detected (NotDetected); Anion Gap 13 mmol/L (10-20); BUN (Urea Nitrogen) 9 mg/dL (7.0-18.7); Barbiturates Screen Not Detected (NotDetected); Benzodiazepine Screen Not Detected (NotDetected); Bilirubin, Total 0.4 mg/dL (0.2-1.2); CK (CPK) 81 U/L (29-168); Calc. Creatinine Clearance 0 mL/min (70-130); Calcium 9.7 mg/dL (7.8-10.44); Carbon Dioxide 26 mmol/L (22-29); Chloride 104 mmol/L (98-107); Cocaine Metabolite Screen Not Detected (NotDetected); Estimated GFR 99; Globulin 3.2 g/dL (2.4-3.5); Glucose 77 mg/dL (70-105); Lipase 17 U/L (8-78); Magnesium 1.9 mg/dL (1.6-2.6); Medtox Control Line Valid? VALID (VALID); Methadone Not Detected (NotDetected); Methamphetamine Not Detected (NotDetected); Opiate Screen Detected (NotDetected); Oxycodone Screen Not Detected (NotDetected); Phencyclidine (PCP) Not Detected (NotDetected); Potassium 3.4 mmol/L (3.5-5.1); Protein, Total 7.9 g/dL (6.0-8.3); Sodium 140 mmol/L (136-145); THC/Cannabinoid Screen Not Detected (NotDetected); Tricyclic Screen Not Detected (NotDetected)
== END 2022-08-27 13:40 | disposition home or self-care (01) ==
LOC: BURERS 10:59
DX: E10.9 Type 1 diabetes mellitus without complications (principal)
CPT/HCPCS: 71045; 80053; 80306; 81003; 81015; 81025; 82550; 83605; 83690; 83735; 84484; 85025; 93005; 96360

== ENCOUNTER 2025-05-11 06:14 | Emergency (ER) | payer SELFPAY ==
[2025-05-11 06:49] LABS: Glucose, Urine (Dipstick) 500 mg/dL (Negative); Leukocyte Large (Negative); Protein, Urine (Dipstick) > or equal to 300 mg/dL (Neg-Trace); Specific Gravity, Urine 1.020 (1.005-1.030)
[2025-05-11 06:50] LABS: Pregnancy Test - Urine (BHCG) Negative (Negative); Pregu Control Background? CLEAR/WHITE (CLR/WHITE); Pregu Control Bar Appear? YES (CONTROL BAR)
[2025-05-11 07:08] LABS: Bacteria/HPF 2+ HPF (None Seen); CAUTI Indications for Culture Fever or rigors; WBC/HPF 21-50 HPF (0-3)
[2025-05-11 07:10] LABS: Urine Culture Reflex Yes Yes
== END 2025-05-11 07:17 | disposition home or self-care (01) ==
LOC: BURERS 06:14
DX: N39.0 Urinary tract infection, site not specified (principal); E10.9 Type 1 diabetes mellitus without complications; Z79.4 Long term (current) use of insulin
CPT/HCPCS: 81001; 81025; 87077; 87086; 99283